=== PATIENT | male | born 1950 | race Caucasian/White ===

== ENCOUNTER 2022-11-07 09:40 | Emergency (ER) | payer MEDICARE, OTHER, SELFPAY ==
[2022-11-07 09:58] VITALS: BP 139/66; PULSE 61; RESP 18; TEMP 36.6; O2SAT 98
[2022-11-07 09:59] VITALS: BP 139/66; PULSE 61; RESP 18; TEMP 36.6; O2SAT 98
--- NOTE | 2022-11-07 10:03 | ED.URI ---
HPI - URI/Sore Throat General Chief Complaint: Upper Respiratory Infection Stated Complaint: Congestion,Cough Time Seen by Provider: 11/07/22 10:03 Source: patient, RN notes reviewed and old records reviewed Mode of arrival: ambulatory Limitations: no limitations History of Present Illness HPI Narrative: 71-year-old male presents to the [facility] with complaints cough and congestion since Thursday night. Has taken [id number] cough and cold medication one time with no relief Denies fevers. Complains of generalized body aches that have been going on on for 4 days. Onset (ago): day(s) (4) Related Data Home Medications Medication Instructions Recorded Confirmed allopurinol 300 mg tablet 300 mg PO DAILY 11/07/22 11/07/22 aspirin 81 mg tablet,delayed 81 mg PO DAILY 11/07/22 11/07/22 release diclofenac sodium 75 mg 75 mg PO DAILY 11/07/22 11/07/22 tablet,delayed release diltiazem HCl 120 mg capsule,24 120 mg PO DAILY 11/07/22 11/07/22 hr,extended release (Tiazac) methocarbamol 500 mg tablet 500 mg PO PRN PRN Muscle Pain 11/07/22 11/07/22 metoprolol succinate 100 mg 100 mg PO DAILY 11/07/22 11/07/22 tablet,extended release 24 hr potassium chloride 20 mEq 20 meq PO DAILY 11/07/22 11/07/22 tablet,extended release(part/cryst) pravastatin 40 mg tablet 40 mg PO DAILY 11/07/22 11/07/22 telmisartan 80 1 tablet PO DAILY 11/07/22 11/07/22 mg-hydrochlorothiazide 25 mg tablet (Micardis HCT) Allergies Allergy/AdvReac Type Severity Reaction Status Date / Time No Known Allergies Allergy Verified 11/07/22 09:56 Review of Systems Review of Systems: All systems reviewed & are unremarkable except as noted in HPI and below Constitutional: Constitutional: Reports as per HPI, Reports body ache(s) and Reports headache(s) Eyes: Eyes: Reports no additional eye complaints ENT: Reports system reviewed and no additional complaints, except as documented Cardiovascular: Cardiovascular: Reports no additional cardiovascular complaints, Denies chest pain and Denies dyspnea Respiratory: Respiratory: Reports as per HPI, Denies chest congestion, Reports cough and Denies dyspnea Gastrointestinal: Gastrointestinal: Reports no additional gastrointestinal complaints, Denies abdominal pain, Denies nausea and Denies vomiting Musculoskeletal: Musculoskeletal: Reports no additional musculoskeletal complaints Integumentary/Breasts: Skin/Breast: Reports system reviewed and no additional complaints, except as docu Neurologic: Reports system reviewed and no additional complaints, except as documented Psychiatric: Psychiatric: Reports no additional psychiatric complaints Allergic/Immunologic: Allergic/Immunologic: Reports no additional allergic/immunologic complaints [facility] Past Medical History Medical History (Updated 11/07/22 @ 15:51 by Alessia De Leon, JEREMÍAS) Arthritis High cholesterol History of high blood pressure Comments At the time of my signature, I reviewed and agree with the nursing past medical, surgical, social, and family history. There is no relevant family history pertinent to the patient complaint. Exam Const: General: cooperative, no acute distress, well developed, alert, ill appearing acutely (Mild), tired appearing, uncomfortable, well groomed and well nourished Nutritional Appearance: well nourished Orientation/consciousness: patient oriented x3 Limitations: no limitations HENMT: Head: normal to inspection Ears: hearing grossly normal bilaterally, external ears normal, TM's normal bilaterally and EAC's normal Face/Nose/Sinus: Normal external nose present, Normal nares present, Normal nasal mucous membranes and turbinates present and normal facial exam Face and sinus: normal facial exam Mouth: Yes Normal oral and palatal mucosa present, Yes lip normal and Yes moist mucous membranes Throat: posterior oropharynx normal, uvula midline and postnasal drainage Eyes: General: appearance normal, both eyes and all
== END 2022-11-07 10:38 | disposition home or self-care (01) ==
PROVIDERS: Emergency Provider Nurse Practitioner
DX: U07.1 COVID-19 (principal); M19.90 Unspecified osteoarthritis, unspecified site; E78.00 Pure hypercholesterolemia, unspecified; I10 Essential (primary) hypertension; Z79.82 Long term (current) use of aspirin
CPT/HCPCS: 87081; 87426; 87804; 87880; 99213; C9803; G0463

== ENCOUNTER 2024-03-25 16:43 | Emergency (ER) | payer MEDICARE, OTHER, SELFPAY ==
[2024-03-25 16:58] VITALS: BP 175/70; PULSE 66; RESP 18; TEMP 37.2; O2SAT 98
--- NOTE | 2024-03-25 17:31 | ED.URI ---
HPI - URI/Sore Throat General Chief Complaint: Upper Respiratory Infection Stated Complaint: Flu like Symptoms Time Seen by Provider: 03/25/24 17:31 Source: patient, RN notes reviewed and old records reviewed Mode of arrival: ambulatory Limitations: no limitations History of Present Illness HPI Narrative: 74-year-old male presents to the [facility] with flu-like symptoms. Patient reports 2 days of cough, sore throat, right ear fullness and chills. Has not taken anything for his symptoms Related Data Home Medications ?Medication ?Instructions ?Recorded ?Confirmed ?Last Taken ?Type allopurinol 300 mg tablet 300 mg PO DAILY 11/07/22 11/07/22 Unknown History aspirin 81 mg tablet,delayed 81 mg PO DAILY 11/07/22 11/07/22 Unknown History release diclofenac sodium 75 mg 75 mg PO DAILY 11/07/22 11/07/22 Unknown History tablet,delayed release diltiazem HCl 120 mg capsule,24 120 mg PO DAILY 11/07/22 11/07/22 Unknown History hr,extended release (Tiazac) methocarbamol 500 mg tablet 500 mg PO PRN PRN Muscle Pain 11/07/22 11/07/22 Unknown History metoprolol succinate 100 mg 100 mg PO DAILY 11/07/22 11/07/22 Unknown History tablet,extended release 24 hr potassium chloride 20 mEq 20 meq PO DAILY 11/07/22 11/07/22 Unknown History tablet,extended release(part/cryst) pravastatin 40 mg tablet 40 mg PO DAILY 11/07/22 11/07/22 Unknown History telmisartan 80 1 tablet PO DAILY 11/07/22 11/07/22 Unknown History mg-hydrochlorothiazide 25 mg tablet (Micardis HCT) Allergies Allergy/AdvReac Type Severity Reaction Status Date / Time No Known Allergies Allergy Verified 03/25/24 17:40 Review of Systems Review of Systems: All systems reviewed & are unremarkable except as noted in HPI and below Constitutional: Constitutional: Reports as per HPI, Reports body ache(s) and Reports chills ENT: Reports as per HPI and Reports sore throat Cardiovascular: Cardiovascular: Reports no additional cardiovascular complaints, Denies chest pain and Denies dyspnea Respiratory: Respiratory: Reports as per HPI, Denies chest congestion, Reports cough and Denies dyspnea Musculoskeletal: Musculoskeletal: Reports no additional musculoskeletal complaints Integumentary/Breasts: Skin/Breast: Reports system reviewed and no additional complaints, except as docu [facility] Past Medical History Medical History Arthritis High cholesterol History of high blood pressure Comments At the time of my signature, I reviewed and agree with the nursing past medical, surgical, social, and family history. There is no relevant family history pertinent to the patient complaint. Exam Const: General: cooperative, healthy appearing, comfortable, no acute distress, well developed, alert and well nourished Nutritional Appearance: well nourished Orientation/consciousness: patient oriented x3 Limitations: no limitations HENMT: Head: normal to inspection Ears: hearing grossly normal bilaterally, external ears normal and TM abnormal bulging on the right and with fluid behind the TM on the right Face/Nose/Sinus: normal facial exam and face symmetric Face and sinus: normal facial exam and face symmetric Mouth: Yes Normal oral and palatal mucosa present, Yes lip normal, Yes tongue normal and Yes moist mucous membranes Throat: posterior oropharynx normal, uvula midline, postnasal drainage and no uvular edema Eyes: General: appearance normal, both eyes and all related structures Neck: Neck: normal visual inspection, full ROM, no lymphadenopathy and no meningeal signs Chest: Chest palpation & inspection: normal inspection of the chest Resp: Effort & Inspection: normal respiratory effort and able to speak in complete sentences Auscultation: clear to auscultation bilaterally, no crackles, no rales, no rhonchi and no wheezes Cardio: Rate: regular rate Skin: General skin exam: normal color and no rashes or lesions noted Neuro: General: patient oriented x3, gait normal, moves all extremities and no meningeal signs Cognition (Neuro): normal cognition Speech: normal speech Gait exam (Neuro): Normal gait present Extrem: General: normal to inspection, full ROM, capillary refill normal and normal gait Psych: Appearance: grossly normal and well kempt Mental Status: mental status grossly normal Speech and movement: Normal speech and movement present and Clear speech present Affect: normal affect Attitude: cooperative Course Course Level of Care: Express Care Visit Vital Signs Vital signs: Vital Signs Temperature 99.0 F 03/25/24 16:58 Pulse Rate 66 03/25/24 16:58 Respiratory Rate 18 03/25/24 16:58 Blood Pressure 175/70 H 03/25/24 16:58 Pulse Oximetry 98 03/25/24 16:58 Oxygen Delivery Room Air 03/25/24 16:58 Temperature 99.0 F 03/25/24 16:58 Pulse Rate 66 03/25/24 16:58 Respiratory Rate 18 03/25/24 16:58 Blood Pressure 175/70 H 03/25/24 16:58 Pulse Oximetry 98 03/25/24 16:58 Oxygen Delivery Room Air 03/25/24 16:58 Reviewed MDM - URI/Sore Throat MDM Narrative Medical decision making narrative: Patient sitting comfortably in exam. Nontoxic vitals are stable except blood pressure mildly elevated. Patient does take blood pressure medication Patient's flu, COVID, strep are negative. Exam most consistent with viral URI with postnasal drainage. Patient appropriate for outpatient treatment and follow-up Discharge instructions reviewed with patient, as well as provided in writing per nursing staff. The instructions also include specific and strict return/GO TO THE ER as well as f/u information. All questions have been answered, and the patient deny any further questions with discharge and discharge plan. Some parts of this dictation were generated by voice recognition software and may contain typographical and/or grammatical inaccuracies. Differential Diagnosis Differential diagnosis: Likely upper respiratory infection, otitis media, sinusitis, viral infection, bronchitis, influenza and pharyngitis Lab Data Labs: Lab Results 03/25/24 Range/Units 17:56 POC Influenza A Ag Negative (Negative) POC Influenza B Ag Negative (Negative) POC SARS CoV-2 Ag Negative (Negative) POC Grp A Strep Screen Negative (Negative) Reviewed Critical Care Time Critical Care Time Critical Care Time: No Discharge Plan Discharge Clinical Impression: Post-nasal drainage Upper respiratory infection Qualifiers: URI type: unspecified viral URI Qualified Code(s): J06.9 - Acute upper respiratory infection, unspecified Patient Disposition: Home, Self-Care Condition: Stable Instructions: Antibiotic Form, Upper Respiratory Infection (ED), Postnasal Drip (DC) Additional Instructions: Today your blood pressure was 175/70. Is recommended you follow-up with primary care provider within 2 weeks to have this rechecked peer Your rapid strep swab was negative today at [facility]. A throat culture will be sent to the laboratory for further testing. If the test is positive, you will receive a phone call within 48 hours and an appropriate antibiotic will be initiated at that time. Your rapid COVID test were negative Your rapid flu test was negative Your symptoms are likely due to a viral illness, which is not treated with antibiotics. Typically viral infections last 7-10 days, can linger for couple of weeks. It is very important to treat your symptoms. Drink plenty of water, Gatorade, Pedialyte, ice pops or Jell-O. -Alternate Tylenol and Motrin per package directions for fever or pain. You can alternate every 4 hours -Antihistamine medication such as Zyrtec/Claritin/Ana during the day can help improve symptoms. -doing daily nasal irrigations can help relieve pressure your sinuses. Things like a Neti pot -Use Flonase twice a day for 5 days then daily to help reduce the inflammation and dry up your sinuses. -You can also use Coricidin HBP or Mucinex. Be sure to drink plenty of water with this medication at least 8 ounces with every dose and it is important to drink 8 to 10 glasses of water per day. Water is a natural decongestant -Eat and drink things that are easy to swallow, like tea or soup, or popsicles. -Oral rinses such as: Salt water gargles and/or may use topical anesthetic (eg. Chloraseptic spray) or lozenges to relieve dryness or throat pain). -Frequent hand washing or hand esthetician facialist is one of the best ways to prevent spread of infection. -Using a vaporizer or humidifier at night will also help thin secretions and help with coughing up phlegm. -Follow up with primary care provider in 7-10 days if condition is not improving - For new or worsening symptoms go directly to the nearest ER Patient Language: Georgian Prescriptions: No Action methocarbamol 500 mg tablet 500 mg PO PRN PRN (Reason: Muscle Pain) pravastatin 40 mg tablet 40 mg PO DAILY metoprolol succinate 100 mg tablet extended release 24 hr 100 mg PO DAILY aspirin 81 mg tablet,delayed release (DR/EC) 81 mg PO DAILY potassium chloride 20 mEq tablet,ER particles/crystals 20 meq PO DAILY diltiazem HCl [Tiazac] 120 mg capsule,extended release 24 hr 120 mg PO DAILY diclofenac sodium 75 mg tablet,delayed release (DR/EC) 75 mg PO DAILY allopurinol 300 mg tablet 300 mg PO DAILY telmisartan-hydrochlorothiazid [Micardis HCT] 80-25 mg tablet 1 tablet PO DAILY Follow-up/Referrals: [facility] [Primary Care Provider] - 2 Weeks ([facility] care follow up ) Time of Disposition: 17:50
[2024-03-25 17:58] LABS: EDCOVIDSCREEN Negative (Negative); EDINFLUASCREEN Negative (Negative); EDINFLUBSCREEN Negative (Negative); EDSTREPNEGPOS1 Negative (Negative)
== END 2024-03-25 17:55 | disposition home or self-care (01) ==
PROVIDERS: Emergency Provider Nurse Practitioner
DX: R09.82 Postnasal drip (principal); J06.9 Acute upper respiratory infection, unspecified; Z20.822 Contact with and (suspected) exposure to COVID-19; I10 Essential (primary) hypertension; E78.00 Pure hypercholesterolemia, unspecified; M19.90 Unspecified osteoarthritis, unspecified site; Z79.82 Long term (current) use of aspirin
CPT/HCPCS: 87081; 87426; 87804; 87880; 99213; G0463

== ENCOUNTER 2024-08-15 19:08 | Emergency (ER) | payer MEDICARE, OTHER, SELFPAY ==
--- OUTSIDE RECORDS SUMMARY | 2024-08-15 19:11 | XMS_ITS | Encounter Summary ---
Author Name [place] Address [address] [place] [address] Care Team Providers Care Marketing Graphics Specialist Name Role Phone CHRYSTAL FLOYD Primary Care Provider Unavailabl e Insurance Providers: All historical and current Section Date Range: From patient's date of to the date document was created. This section includes the names of all active insurance providers for the patient. Insurance Provider Type of Coverage Plan Name Start of Policy Coverage End of Policy Coverage Group Number Member ID Insurance Provider's Telephone Number Policy German's Name Patient's Relationship to Policy German AETNA PREFERRED PROVIDER ORGANIZAT ION (PPO) [facility] Oct 03, 2015 [id number] [phone] [facility] PATIENT AETNA POINT OF SERVICE [facility] A (I) Mar 30, 2013 [id number] [facility] PATIENT AETNA PHARMACY MANAGEMENT PRESCRIPT ION RX PLAN Mar 30, 2013 [id number] [facility] PATIENT AETNA [facility] Oct 03, 2015 [id number] [phone] [facility] [place] [id number] PRESCRIPT ION [id number] July 28, 2006 [id number] SERENE BRUNSON [place] PATIENT MEDICARE (WNR) MEDICARE (M) PART A Dec 28, 2014 PART A [id number] [phone] SERENE BRUNSON [place] PATIENT MEDICARE (WNR) MEDICARE (M) PART B Dec 28, 2014 PART B [id number] SERENE BRUNSON [place] PATIENT MEDICARE (WNR) MEDICARE (M) PART A Dec 28, 2014 PART A [id number] SERENE BRUNSON [facility] PATIENT MEDICARE (WNR) MEDICARE (M) PART B Dec 28, 2014 PART B [id number] [phone] SERENE BRUNSON [place] PATIENT [facility] [id number] [phone] SERENE BRUNSON [facility] PATIENT Selected Encounter This section includes the information on record at [place] for the Encounter. Date/Time Encounter Type Encounter Description Reason Provider Source Jun 03, 2024 10:45 AM HEARING AID FITTING/CHECKIN G AUDIOLOGY ICD-10-CM H90.3 Sensorineural hearing loss, bilateral EMI OSCAR [facility] Encounter Template Text not used by [place] Assessments - Encounter Diagnoses This section includes the primary and secondary diagnoses documented for the Encounter. Date/Time Primary/Secondary Diagnosis Diagnosis Name Provider Source Jun 12, 2024 03:28 PM PRIMARY Sensorineural hearing loss, bilateral EMI OSCAR [facility] Plan of Treatment: Future Appointments (+ 6 months) and Future Tests (+/- 45 days) The Plan of Treatment section includes future care activities for the patient from all [place] treatmentfacilities. This section includes future appointments and future orders which are active, pending or scheduled. Future Appointments This section includes appointments that were scheduled to occur 6 months from the date of the Encounter, up to a maximum of 20 appointments. The data comes from all [place] treatment facilities. Appointment Date/Time Appointment Type Appointme nt Facility Name Jun 16, 2024 04:00 PM AMBULATORY - MEDICINE [facility] August 23, 2024 04:00 PM AMBULATORY - MEDICINE [facility] Oct 24, 2024 10:30 AM AMBULATORY - MEDICINE [facility] Active, Pending, and Scheduled Orders This section includes a listing of several types of active, pending, and scheduled orders, including clinic medications orders, diagnostic test orders, procedure orders and consult orders; where the start date of the order is 45 days before the date of the Encounter or 45 days after the date of theEncounter. The data comes from all [place] treatment facilities. Test Date/Time Test Type Test Details Facility Name Apr 28, 2024 12:00 AM Laboratory - Chemi stry Order PROST. SPECIFIC AG.(PB-STL) GOLD/RED SST SERUM SP [facility] Apr 28, 2024 12:00 AM Laboratory - Chemi stry Order BASIC METABOLIC PANEL GREEN LI/HEP BLD/PLAS PLASMA SP [facility] Apr 28, 2024 12:00 AM Laboratory - Chemi stry Order URINALYSIS (STL-PB) URINE [facility] Apr 28, 2024 12:00 AM Laboratory - Chemi stry Order CBC BLOOD SP [facility] Apr 28, 2024 12:00 AM Laboratory - Chemi stry Order HGA1C BLOOD [facility] Lab Results: +/- 30 days of the encounter This section includes the Chemistry and Hematology Lab Results on record with [place] for the patient. Radiology Reports and Pathology Reports are provided separately, in subsequent sections. Lab Results This section contains the Chemistry/Hematology Results that were resulted 30 days before or 30 daysafter the date of the Encounter. Date/Time Source Result Type Result - Unit Interpretation Reference Range Specimen Type Comment May 12, 2024 03:17 PM [facility] I-STAT, CREAT (L-TN) BLOOD Specimen Type: BLOOD Comment: Test Performed by: [id number] Meter #: [id number] Ordering Provider: CHRYSTAL FLOYD Report Released Date/Time: May 12, 2024 03:19 PM Reporting Lab: [facility] [address] [place] [id number] Performing Lab: [facility] [address] [place] [id number] I-STAT, CREAT (L-MA) 1.1 mg/dL 0.7-1.3 Social History: Smoking Status (Most current) and Tobacco Use (All prior to encounter date) This section includes the most current, and the historical, smoking and tobacco- related health factors from the [place] facility where the Encounter took place. Current Smoking Status This section includes the most current smoking, or tobacco-related health factor, from the [place] facility where the Encounter took place. Date/Time Current Smoking Status Comment Irish roldandanica Dec 21, 2023 10:04 AM [place]-TOBACCO NEVER USED [facility] Tobacco Use History This section includes a history of the smoking, or tobacco-related health factors, that were collected on or before the date of the Encounter. The data comes from the [place] facility where the Encounter took place. Date/Time Smoking Status/Tobacco Use Comment Carlos amie Jul 22, 2022 09:58 AM [place]-TOBACCO NEVER USED [facility] Apr 19, 2020 03:00 PM [place]-TOBACCO NEVER USED [facility] Radiology Reports: +/- 30 days of the encounter Radiology Reports For cases when an order for radiology services may have been completed prior to the date of the Encounter, the report list includes the Radiology Reports that were completed up to 30 days before dateof the Encounter. For cases when an order for radiology services may have been completed after the date of the Encounter, the report list also includes the Radiology Reports that were completed up to30 days after date of the Encounter. The data comes from all [place] treatment facilities. Date/Time Radiology Report Provider Source May 12, 2024 03:[address] UROGRAM-P: MARIA EUGENIA BRUNSON [place] [id number] -1950 M Ex Date: MAY 12, 2024@15:05 Req Phys: CHRYSTAL FLOYD Loc: [facility]-ST CLR PACT 2 PCP (Michele'ko Lo Img Loc: [facility]-CT IMAGING Service: [address] [address] (Case [id number] COMPLETE) CT ABDOMEN AND PELVIS WITH AND WI(CT Detailed) CPT:47352 Contrast Media : Non-ionic Iodinated Reason for Study: mass on l/s MRI spin Clinical History: Responsible Attending: Chrystal Floyd MD Attending Contact Number: [phone] Resident Contact Number: Mass noted on MRI of lumbar spine in the inferior wall of bladder Allergies listed in CPRS chart: Patient has answered NKA Creatinine: CREATININE 1.06 mg/dL 12/28/2023 09:36 /eGFR: STL EGFR (within one year). CREATININE 1.06 mg/dL (12/28/23 09:36) Wt: 225.2 lb [102.15 kg] (04/28/2024 14:03) History of: Renal failure, chronic or acute renal disease: NO Report Status: Verified Date Reported: MAY 15, 2024 Date Verified: MAY 15, 2024 Retail Supervisor E-Sig:/ES/Maria Eugenia Fernando MD Report: CASE #: [id number] DATE:05/12/2024 5:17 PM CLINICAL HISTORY:mass on l/s MRI spin COMPARISON: None currently available. PROCEDURES: CT ABDOMEN AND PELVIS WITH AND WITHOUT CONTRAST FINDINGS: No urinary calculi. No obstructive uropathy. Simple appearing cyst exophytic from the upper pole right kidney. Smaller cyst right inferior cortex. No obstructive uropathy. No acute perinephric inflammation. Normal course and caliber of the ureters to the bladder base. Portions of the distal left ureter are unopacified, presumably related to peristalsis. Prostate is enlarged measuring 6.8 cm craniocaudal by 5.9 cm transverse and 7.1 cm AP. Prostate gland creates mass effect bladder base. Is difficult to separate the prostate gland from the bladder base. The possibility of a bladder base tumor cannot be entirely excluded, although the appearance could be related to mass effect from the enlarged prostate gland. Cystoscopy recommended for further evaluation. Top normal heart size. No pleural or pericardial effusion. Pancreas, spleen and adrenals unremarkable. No cholelithiasis or acute cholecystitis. Tiny hepatic hypodensities too small to fully characterize along with some larger hypodensities consistent with cysts are noted. No definite hepatic mass. No intra or extrahepatic biliary dilatation. No retroperitoneal or mesenteric lymphadenopathy. Normal appendix. Colonic diverticulosis but no acute diverticulitis or bowel obstruction or perforation. Periumbilical hernia containing only fat. No inguinal hernia. No free or loculated fluid abdomen or pelvis. No retroperitoneal or mesenteric lymphadenopathy. Degenerative changes spine and hips. No fractures identified. Impression: Enlarged prostate gland measuring 6.8 x 5.9 x 7.1 cm creates mass effect on the bladder base. Bladder base is irregular and difficult to separate from the enlarged prostate gland. Possibility of a bladder base tumor cannot be excluded. However, the appearance could merely be the result of mass effect from the enlarged prostate gland. Cystoscopy recommended for further evaluation. Right renal cysts. Hepatic cysts. Periumbilical hernia. Colonic diverticulosis but no acute diverticulitis. No free or loculated fluid abdomen or pelvis. No renal masses. Primary Interpreting Staff: Maria Eugenia Fernando MD, Radiologist (Retail Supervisor) /MARIA EUGENIA KIMBLE [facility] Encounter Notes: All associated encounter notes This section contains the clinical notes associated to the Encounter. Date/Time Encounter Note(s) Provider Source Jun 03, 2024 11:12 AM AUDIOLOGY CONSULT: LOCAL TITLE: ABR CONSULT [facility] STANDARD TITLE: AUDIOLOGY CONSULT DATE OF NOTE: JUN 03, 2024@11:12 ENTRY DATE: JUN 03, 2024@11:12:50 AUTHOR: EMI OSCAR COSIGNER: URGENCY: STATUS: COMPLETED SUBJECT: audio [facility] AUDITORY EVOKED POTENTIAL EVALUATION SUMMARY PROTOCOL Type: Click Electrode array: Forehead to earlobes Intensity: 90 dB Filter settings: 100-3000 Hz Rate: 21.1/sec Transducer: Inserts Duration: 100 usec Masking: white noise, 55 dB nHL Polarity: Rarefaction Epoch time: 10.66 ms HISTORY Mr. Brunson was seen today for an auditory brainstem response evaluation upon referral from -Audiology. The patient was seen for an audiogram on 04-22-2024. Thresholds indicated a normal to severe sensorineural hearing loss in the right ear and a mild to severe sensorineural hearing loss in the left ear . Word recognition scores were rated as 88% in the right ear and 68% in the left ear. The patient was referred asymmetric puretones and word recognition scores to the left ear. RESULTS 90 dB I III V I-III III-V I-V RIGHT 1.91 3.91 5.90 2.00 2.00 4.00 LEFT 1.62 3.91 5.82 2.29 1.92 4.21 INTERPRETATION All absolute and interpeak wave latencies were within normal limits bilaterally. Wave V interaural difference was within normal limits. Wave morphology was good. Test results do not suggest retrocochlear pathology. Per previous [facility] notes, Verifit recommended at today's evaluation. Pt has the following VA aids [facility] c-shells: 12/22/18 SONOVA PHONAK AUDEO M90-312 AYDEE R [id number] 12/22/18 SONOVA PHONAK AUDEO M90-312 AYDEE L [id number] Real-ear measures are within acceptable limits. Curves stored in BART. Pt would like aids paired to his phone and an meryl for his hearing aids like his 's aids. Installed Health Benefits Direct meryl on phone. Paired aids to phone and meryl and demonstrated BT streaming, phone calls, and meryl adjustments. Pt happy with hearing aids and will call with problems. RECOMMENDATIONS 1. Patient has been advised of normal test results. 2. HAC as needed. /kathy/ Pradeep HINES Staff Marketing Research Analyst, Surgery Service Signed: 06/03/2024 11:56 EMI OSCAR [facility]
--- OUTSIDE RECORDS SUMMARY | 2024-08-15 19:11 | XMS_ITS | Encounter Summary ---
Author Name [facility] [place] Address [address] [place] [address] Care Team Providers Care Shop Technician Name Role Phone CHRYSTAL FLOYD Primary Care [...] German AETNA PREFERRED PROVIDER ORGANIZAT ION (PPO) [facility] Oct 03, 2015 [id number] [facility] AETNA POINT OF SERVICE [facility] A (I) Mar 30, 2013 [id number] [facility] AETNA PHARMACY MANAGEMENT PRESCRIPT ION RX PLAN Mar 30, 2013 [id number] [facility] AETNA [facility] Oct 03, 2015 [id number] [facility] [place] [place] [id number] PRESCRIPT ION [id number] July 28, 2006 [id number] SERENE BRUNSON OMAS PATIENT MEDICARE (WNR) MEDICARE (M) PART A Dec 28, 2014 PART A [id number] SERENE BRUNSON OMAS PATIENT MEDICARE (WNR) MEDICARE (M) PART B Dec 28, 2014 PART B [id number] SERENE BRUNSON OMAS PATIENT MEDICARE (WNR) MEDICARE (M) PART A Dec 28, 2014 PART A [id number] SERENE BRUNSON OMAS PATIENT MEDICARE (WNR) MEDICARE (M) PART B Dec 28, 2014 PART B [id number] SERENE BRUNSON OMAS PATIENT [facility] [id number] [phone] SERENE BRUNSON OMAS PATIENT Selected Encounter This section includes the information on record at [place] for the Encounter. Date/Time Encounter Type Encounter Description Reason Provider Source Apr 22, 2024 01:00 PM HEARING AID FITTING/CHECKIN G AUDIOLOGY ICD-10-CM H90.3 Sensorineural hearing loss, bilateral SHARAN LANCASTER Janet Encounter Template Text not used by [place] Assessments - Encounter Diagnoses This section includes the primary and secondary diagnoses documented for the Encounter. Date/Time Primary/Secondary Diagnosis Diagnosis Name Provider Source Apr 22, 2024 02:01 PM PRIMARY Sensorineural hearing loss, bilateral SHARAN LANCASTER [facility] Apr 22, 2024 02:01 PM SECONDARY Tinnitus, bilateral SHARAN LANCASTER [facility] Plan of Treatment: Future Appointments (+ 6 months) and Future Tests (+/- 45 days) The Plan of Treatment section includes future care activities for the patient from all [place] treatmentfacilities. This section includes future appointments and future orders which are active, pending or scheduled. Future Appointments This section includes appointments that were scheduled to occur 6 months from the date of the Encounter, up to a maximum of 20 appointments. The data comes from all [place] treatment facilities. Appointment Date/Time Appointment Type Appointme nt Facility Name Apr 28, 2024 02:00 PM AMBULATORY - MEDICINE [facility] May 12, 2024 03:30 PM AMBULATORY - NONE [facility] NABILA Zhou [facility] Jun 03, 2024 10:45 AM AMBULATORY - NONE [facility] NABILA Winnie [facility] Jun 16, 2024 04:00 PM AMBULATORY - MEDICINE [facility] August 23, 2024 04:00 PM AMBULATORY MEDICINE [facility] Active, Pending, and Scheduled Orders This section includes a listing of several types of active, pending, and scheduled orders, including clinic medications orders, diagnostic test orders, procedure orders and consult orders; where the start date of the order is 45 days before the date of the Encounter or 45 days after the date of theEncounter. The data comes from all [facility] facilities. Test Date/Time Test Type Test Details Facility Name Apr 28, 2024 12:00 AM Laboratory - Chemi stry Order PROST. SPECIFIC AG.(PB-STL) GOLD/RED SST SERUM [facility] Apr 28, 2024 12:00 AM Laboratory - Chemi stry Order BASIC METABOLIC PANEL GREEN LI/HEP BLD/PLAS PLASMA SP [facility] Apr 28, 2024 12:00 AM Laboratory - Chemi stry Order URINALYSIS (STL-PB) URINE SP [facility] Apr 28, 2024 12:00 AM Laboratory - Chemi stry Order CBC BLOOD [facility] Apr 28, 2024 12:00 AM Laboratory - Chemi stry Order HGA1C BLOOD [facility] Lab Results: +/- 30 days of the encounter This section includes the Chemistry and Hematology Lab Results on record with [place] for the patient. Radiology Reports and Pathology Reports are provided separately, in subsequent sections. Lab Results This section contains the Chemistry/Hematology Results that were resulted 30 days before or 30 daysafter the date of the Encounter. Date/Time Source Result Type Result - Unit Interpretation Reference Range Specimen Type Comment May 12, 2024 03:17 PM [facility] I-STAT, CREAT (STL-MA) BLOOD Specimen Type: BLOOD Comment: Test Performed by: [id number] Meter #: [id number] Ordering Provider: CHRYSTAL FLOYD Report Released Date/Time: May 12, 2024 03:19 PM Reporting Lab: [facility] [address] [facility] [id number] Performing Lab: [facility] [address] [facility] [id number] I-STAT, CREAT (STL-MA) 1.1 mg/dL 0.7-1.3 Social History: Smoking Status (Most current) and Tobacco Use (All prior to encounter date) This section includes the most current, and the historical, smoking and tobacco- related health factors from the [place] facility where the Encounter took place. Current Smoking Status This section includes the most current smoking, or tobacco-related health factor, from the [place] facility where the Encounter took place. Date/Time Current Smoking Status Comment Irish skinner Dec 21, 2023 10:04 AM [place]-TOBACCO NEVER USED [facility] Tobacco Use History This section includes a history of the smoking, or tobacco-related health factors, that were collected on or before the date of the Encounter. The data comes from the [place] facility where the Encounter took place. Date/Time Smoking Status/Tobacco Use Comment F acility Jul 22, 2022 09:58 AM [place]-TOBACCO NEVER USED [facility] Apr 19, 2020 03:00 PM [place]-TOBACCO NEVER USED [facility] Radiology Reports: +/- 30 days of [...] the Encounter. The data comes from all [place] treatment facilities. Date/Time Radiology Report Provider Source May 12, 2024 03:[address] UROGRAM-P: MARIA EUGENIA BRUNSON [id number] -1950 M Ex Date: MAY 12, 2024@15:05 Req Phys: CHRYSTAL FLOYD Loc: [facility]-ST CLR PACT 2 PCP (Michele'ko Oneil Img Loc: [facility]-CT IMAGING [facility] Service: [facility], [facility] [address] [place] [address] (Case [id number] COMPLETE) CT ABDOMEN AND PELVIS WITH AND WI(CT Detailed) CPT:73083 Contrast Media : Non-ionic Iodinated Reason for Study: mass on l/s MRI spin Clinical History: Responsible Attending: Chrystal Floyd MD Attending Contact Number: [phone] Resident Contact Number: Mass noted on MRI [...] 15, 2024 Date Verified: MAY 15, 2024 Engine Cleaner E-Sig:/ES/Maria Eugenia Fernando MD Report: CASE #: [id number] DATE:05/12/2024 5:17 PM CLINICAL HISTORY:mass on l/s [...] Interpreting Staff: Maria Eugenia Fernando MD, Radiologist (Engine Cleaner) /MARIA EUGENIA KIMBLE [facility] Encounter Notes: All associated encounter notes This section contains the clinical notes associated to the Encounter. Date/Time Encounter Note(s) Provider Source Apr 22, 2024 01:22 PM AUDIOLOGY E & M NO TE: LOCAL TITLE: AUDIO EVALS ST STANDARD TITLE: AUDIOLOGY E & M NOTE DATE OF NOTE: APR 22, 2024@13:22 ENTRY DATE: APR 22, 2024@13:22:44 AUTHOR: SHARAN LANCASTER COSIGNER: URGENCY: STATUS: COMPLETED PURPOSE OF APPOINTMENT: Audiometric Evaluation [x] patient-initiated visit CASE HISTORY: Established pt with a history of bilateral high-frequency sensorineural hearing loss. Last audio eval was 11/25/2018. [facility] hearing aids: 12/22/18 SONOVA PHONAK AUDEO M90-312 AYDEE R [id number] 12/22/18 SONOVA PHONAK AUDEO M90-312 AYDEE L [id number] Pt's chief complaint is a perception of bothersome sensation in his left ear when touched; onset June-July 2023 per his report. He describes it as a tight kettle drum , higher pitch, with some echo. ENT evaluated and recommend ETD treatment regimen pt states has been unsuccessful. He reports his hearing has changed to the left though states his right ear has remained stable, though he misses sounds. He states his hearing aids do well though he states he feels they need adjustments. He endorses bilateral, constant, tinnitus he has largely habituated to. Pt denies otalgia, aural fullness, dizziness, otosurgery, recent ear infections, ototoxic history, radiation to head/neck, and/or family history of congenital hearing loss. OTOSCOPY: Clear canals and unremarkable TMs bilaterally. RESULTS: Right Ear- Audiometry (air and bone conduction): WNL through 500 Hz sloping to moderate SNHL 2-4 kHz and severe at 8 kHz. SRT: 25 dB HL (last eval 20 dB HL) WRS: 88% 50-word*, good (last eval 92%) Tympanogram: Jerger Type A, WNL Reflexes: Ipsi: Present 500-1000 Hz, absent 2-4 kHz. Contra: Present 500-2000 Hz, absent 4 kHz. Left Ear- Audiometry (air and bone conduction): Moderate SNHL 250 Hz rising to mild 1-2 kHz then sloping to severe at 8 kHz. SRT: 35 dB HL (last eval 25 dB HL) WRS: 68% 50-word*, fair (last eval 92%) Tympanogram: Jerger Type A, WNL Reflexes: Ipsi: Present 500-2000 Hz, absent 4 kHz. Contra: Present 500-1000 Hz, absent 2-4 kHz. Asymmetric sensorineural hearing loss worse to the left ear. Significant change and widening of asymmetry since last eval; no indication of middle ear dysfunction at this time. ABR indicated at this time. Counseled pt regarding test results and ABR. Pt agreeable to further testing to rule out retrocochlear pathology. Hearing aid check performed today: CLEANING/REPAIRS: General cleaning. Listening check OK. DATALOGGING: Datalogging since 04/29/2019 reveals 0.2 hrs/day avg wear time. Datalogging reset. PROGRAMMING: Feedback test is good bilaterally. Programming updated to NAL-NL2 targets. Created manual tinnitus program for pt per his request and activate program change (long press of upper button.) Pt demonstrated proficiency with changing programs. DISPOSITION: Pt left office wearing binaural hearing aids. RECOMMENDATIONS: 1. ABR. Recommend Verifit at that time as well. 2. Contact Audiology Clinic [phone] for repairs and/or adjustments as needed. *50-word NU-6A lists used per raw material handler's professional discretion. Rationale: 50-word NU-6A lists are phonetically-balanced and provider greater validity and reliability in assessment without significant time or effort demands for patient and/or raw material handler. See Kaela & Purnima (1978,) Marc & Monet (2003,) and Abdelrahman & Wallace (2011.) /kathy/ Pradeep Galarza, [facility] Staff Student Records Coordinator, Surgery Service Signed: 04/22/2024 15:46 SHARAN LANCASTER [facility]
--- OUTSIDE RECORDS SUMMARY | 2024-08-15 19:11 | XMS_ITS | Clinical Summary ---
Author Organization [facility] Address [address] [place] [address] Care Team Providers Care Manager Fast Food Name Role Phone Chrystal Clark MD Primary Care Provider [phone] Allergies No known active allergies Medications allopurinol 300 MG tablet Take 300 mg by mouth nightly. 8 Active ASPIRIN 81 MG tablet Take 81 mg by mouth nightly. 8 Active omega-3 acid 1 GM capsule Take 1 g by mouth 2 (two) times daily. 8 Active Telmisartan-HC TZ 80-25 MG Tab Take 1 tablet by mouth daily. 8 Active meloxicam 15 MG tablet Take 15 mg by mouth nightly. 0 Active methocarbamol 500 MG tablet Take 500 mg by mouth as needed. 0 Active dilTIAZem 120 MG tablet Take 120 mg by mouth nightly. 1 Active metoprolol succinate ER 50 MG 24 hr tablet Take 50 mg by mouth nightly. 1 Active acetaminophen 500 MG tablet Take 1,000 mg by mouth every 6 (six) hours as needed for Pain. Active Cyanocobalamin (VITAMIN B-12) 2500 MCG SL Tab Take 1 tablet by mouth daily. Active Vitamin D3, cholecalcifero l, 2000 UNIT Tab tablet Take 2,000 Units by mouth daily. Active zinc sulfate (ZINCATE) 220 MG capsule Take 50 mg by mouth daily. Active potassium chloride CR (KLOR-CON M) 20 MEQ tablet 2 Active dilTIAZem ER (TIAZAC) 120 MG 24 hr capsule Take 1 capsule (120 mg total) by mouth daily. 4 Active methylPREDNISo SAMANTA escobar, (MEDROL DOSEPAK) 4 MG tablet Take 1 tablet (4 mg total) by mouth see administration instructions. 6 TABLETS ON DAY ONE, 5 TABLETS DAY TWO, 4 TABLETS DAY THREE, 3 TABLETS DAY FOUR, 2 TABLETS DAY FIVE, AND 1 TABLET DAY SIX 1 each 4 Active Additional Information Patient not taking.Reported on 10/22/2023 nirmatrelvir & ritonavir 300/100 (PAXLOVID) 20 x 150 MG & 10 x 100MG tablet pack Take 3 tablets by mouth 2 (two) times daily. Take TWO nirmatrelvir 150 mg tablet(s) along with ONE ritonavir 100 mg tablet, with all three tablets taken together, twice daily for 5 days. May take with or without food. Swallow tablets whole. Do not chew, break or crush.. 30 tablet 4 Active Active Problems Problem Noted Date Diagnosed Date Gout 11/02/2012 Hyperlipidemia 11/02/2012 Hypertension 11/02/2012 Immunizations Immunization Administration Dates Next Due Hepatitis A (Generic) 01/23/1998 Hepatitis A (Havrix [address]) 01/30/1997 Hepatitis B (Generic: Adult) 12/15/1989 Influenza (Generic) 02/04/2019, 4,01/15/2012,2009,12/15/2008,12/08/2005,01/17/1998,1 04/02/1996 Influenza Adult (Generic) 03/06/2017,03/15/2015 MMR (MMRII) 07/13/1989 MODERNA COVID-19 (12+) MRNA, LNP-S, PF, 100 MCG/ 0.5 ML DOSE 05/10/2020,04/11/2020 Pneumococcal (Pneumovax 23) 03/15/2015 Pneumococcal (Prevnar 13) 12/05/2016 Td (TDVAX) 07/06/1989 Td (Tenivac) preservative free 07/06/1989 Tdap (Generic) 12/15/2008 Zoster (Zostavax) 72450 Unt/0.65Ml 05/01/2009 Family History Medical History Relation Comments Alcohol Abuse Brother No Known Problems Daughter 1 No Known Problems Daughter 2 Heart Disease Father Diabetes Mother Heart Disease Mother Kidney Disease Mother non functioning kidney Breast Cancer Sister 1 Cancer Sister 1 Hypertension Sister 2 Hypertension Sister 3 No Known Problems Son Relation Status Comments Brother Daughter 1 Alive Daughter 2 Alive Father (Age 65) Mother (Age 80) Sister 1 Alive Sister 2 Sister 3 Son Alive Social History Tobacco Use Types Packs/Day Years Used Date Smoking Tobacco: Never Smokeless Tobacco: Never Tobacco Cessation:Counseling Given: Yes Alcohol Use Standard Drinks/Week Comments No 0 (1 standard drink = 0.6 oz pur e alcohol) AUDIT-C Answer Date Recorded Frequency of Alcohol Consumption Never 06/04/2018 Average Number of Drinks Not on file 019 Frequency of Binge Drinking Not on file 10/2018 PHQ-2 Answer Date Recorded PHQ-2 Score - If the patient scores above 3, please move on to questions 3-9 0 05/29/2021 Sex and Gender Information Value Date Recorded Sex Assigned at Not on file Legal Sex Male 8:23 PM CDT Gender Identity Male 05/20/2021 9:30 AM FLAT BED KNITTER Sexual Orientation Straight 05/20/2021 9: 30 AM FLAT BED KNITTER Last Filed Vital Signs Vital Sign Reading Time Taken Comments Blood Pressure 129/69 10/22/2023 10:49 AM CDT Pulse 59 10/22/2023 10:49 AM CDT Temperature 37.2 C (98.9 F) 10/22/2023 10:49 AM CDT Respiratory Rate 18 10/22/2023 10:49 AM CDT Oxygen Saturation 99% 10/22/2023 10:49 AM CDT Inhaled Oxygen Concentration - - Weight 97.5 kg (215 lb) 10/22/2023 10:49 AM CDT Height 180.3 cm (5' 11 ) 10/22/2023 10:49 AM CDT Body Mass Index 29.99 10/22/2023 10:49 AM CDT Plan of Treatment Health Maintenance Due Date Last Done Comments Hepatitis C 12[birth year]31/1968 Annual Medicare Wellness Visit 2014 Colorectal Cancer Screening Colonoscopy (10 Years) 03/30/2020 03/30/2010 COVID-19 Vaccine ( season) 2023 02/11/2022, 04/19/2021, 05/10/2020, Additional history exists RSV Immunization or 60+ Years (1 - 1-dose 75+ series) 2024 DTaP, Tdap and Td Vaccines (3 - Td or Tdap) 12/02/2028 12/02/2018, 12/15/2008, 07/06/1989, Additional history exists Pneumococcal Vaccine: 50+ Years Completed 03/06/2017, 12/05/2016, 03/15/2015 Zoster Vaccines Completed 11/28/2020, 05/2020, 05/01/2009 Meningococcal B Vaccine Aged Out No l onger eligible based on patient's age to complete this topic Meningococcal Vaccine Aged Out No judd ras eligible based on patient's age to complete this topic RSV Immunizations Under 20 Months Aged Out No longer eligible based on patient's age to complete this topic Goals Goal Patient Goal Type Associated Problems Recent Progress Patient-Stated? Author Health - patient able to perform ADLs independently General Ben Benitez RN Procedures Procedure Name Priority Date/Time Associated Diagnosis Comments COLONOSCOPY Routine 03/30/2010 12:00 AM FLAT BED KNITTER from Last 3 Months or Most Recently Relevant to Health Maintenance Results * Colonoscopy (03/30/2010 12:00 AM FLAT BED KNITTER) 03/30/2010 03/30/2010 Narrative TOUCHWORKS TO EPIC CONVERSION - 12/04/2017 1:52 PM CDT normal Procedure Note Wyatt Piedra MD - 07/13/2018 normal us Generic Conversion Md [facility] GI PROCEDURE ORDERABLES Final Result TOUCHWORKS TO EPIC CONVERSION from Last 3 Months or Most Recently Relevant to Health Maintenance Insurance [facility] AETNA MEDICARE [facility] Advance Directives * Full Code (Latest Code Status on File) Date Activated Date Inactivated Comments 05/21/2021 12:29 PM 05/22/2021 5:42 PM Care Teams Manager Fast Food Relationship Specialty Start Date End Date Chrystal Clark MD [facility] office [address] [place] [id number] PCP - General FAMILY PRACTICE 09/10/20
--- OUTSIDE RECORDS SUMMARY | 2024-08-15 19:11 | XMS_ITS | Encounter Summary ---
Author Organization [facility] Address [address] [place] [address] Care Team Providers Care Mill Dresser Name Role Phone Caden Burch MD Unavailable [phone] Chrystal Clark MD Primary Care Provider [phone] Encounter Details Date Type Department Care Team (Latest Contact Info) Description 05/08/2021 Ohmxt Message Enc [facility]ispec[facility] - [facility] [address] [facility] [place] [address] Humberto Cevallos MD [address] [place] [address] JULIUS KEATING [id number] Laser Vaporization of the Prostate Social History Tobacco Use Types Packs/Day Years Used Date Smoking Tobacco: Never Smokeless Tobacco: Never Alcohol Use Standard Drinks/Week Comments No 0 (1 standard drink = 0.6 oz pur e alcohol) AUDIT-C Answer Date Recorded Frequency of Alcohol Consumption Never 06/04/2018 Average Number of Drinks Not on file 019 Frequency of Binge Drinking Not on file 10/2018 PHQ-2 Answer Date Recorded PHQ-2 Score - If the patient scores above 3, please move on to questions 3-9 0 04/24/2021 Sex and Gender Information Value Date Recorded Sex Assigned at Not on file Legal Sex Male 8:23 PM CDT Gender Identity Male 05/20/2021 9:30 AM GEOTHERMAL OPERATIONS ENGINEER Sexual Orientation Straight 05/20/2021 9: 30 AM GEOTHERMAL OPERATIONS ENGINEER COVID-19 Exposure Response Date Recorded In the last 10 days, have mariama u been in contact with someone who was confirmed or suspected to have Coronavirus/COVID-19? No / Unsure 05/06/2021 9:21 AM GEOTHERMAL OPERATIONS ENGINEER documented as of this encounter Progress Notes * Gabriela Martinez MA - 05/09/2021 12:44 PM CSTSummary: Questions Are you able to give him a call or I can if you let me know. HERMAL OPERATIONS ENGINEER documented in this encounter Plan of Treatment Not on file documented as of this encounter Visit Diagnoses Not on filedocumented in this encounter Additional Health Concerns Infection Onset Date Last Indicated Resolved Time COVID-19 Rule Out 10/22/2023 10/22/2023 10/22/2023 11:02 AM CDT COVID-19 Confirmed 10/22/2023 10/22/2023 12:32 AM CDT Assessment Noted Time PHQ-9 Depression Total Score: 0 04/24/19 22 8:26 AM GEOTHERMAL OPERATIONS ENGINEER documented as of this encounter Care Teams Mill Dresser Relationship Specialty Start Date End Date Caden Burch MD [address] [facility] [address] [place] [address] PCP - Med Group - [facility] Attributed Provider 03/30/15 03/29/22 Chrystal Clark MD [facility] office [address] [place] [address] PCP - General FAMILY PRACTICE 09/10/20 documented as of this encounter
--- OUTSIDE RECORDS SUMMARY | 2024-08-15 19:11 | XMS_ITS | Encounter Summary ---
Author Name [facility] Organization [facility] Address [address] [place] [address] Care Team Providers Care Contract Law Specialist Name Role Phone CHRYSTAL FLOYD Primary [...] German AETNA PREFERRED PROVIDER ORGANIZAT ION (PPO) [facility] Oct 03, 2015 [id number] [facility] PATIENT AETNA POINT OF SERVICE [facility] (I) Mar 30, 2013 [id number] [facility] AETNA PHARMACY MANAGEMENT PRESCRIPT ION RX PLAN Mar 30, 2013 [id number] [facility] PATIENT AETNA [facility] Oct 03, 2015 [id number] [facility] [place] [id number] PRESCRIPT ION [id number] July 28, 2006 [id number] SERENE BRUNSON [facility] PATIENT MEDICARE (WNR) MEDICARE (M) PART A Dec 28, 2014 PART A [id number] SERENE BRUNSON [facility] PATIENT MEDICARE (WNR) MEDICARE (M) PART B Dec 28, 2014 PART B [id number] [phone] SERENE BRUNSON [place] PATIENT MEDICARE (WNR) MEDICARE (M) PART A Dec 28, 2014 PART A [id number] SERENE BRUNSON [place] PATIENT MEDICARE (WNR) MEDICARE (M) PART B Dec 28, 2014 PART B [id number] SERENE BRUNSON AS PATIENT [facility] [id number] [phone] SERENE BRUNSON [place] PATIENT Selected Encounter This section includes the information on record at ID for the Encounter. Date/Time Encounter Type Encounter Description Reason Provider Source Apr 28, 2024 02:00 PM OFFICE O/P EST MOD 30 MIN PRIMARY CARE/MEDICINE ICD-10-CM I10 Essential (primary) hypertension CHRYSTAL FLOYD [facility] Encounter Template Text not used by ID Assessments - Encounter Diagnoses This section includes the primary and secondary diagnoses documented for the Encounter. Date/Time Primary/Secondary Diagnosis Diagnosis Name Provider Source May 10, 2024 07:20 AM PRIMARY Essential (primary) hypertension CHRYSTAL FLOYD [facility] May 10, 2024 07:20 AM SECONDARY Elevated prostate specific antigen [PSA] CHRYSTAL FLOYD [facility] May 10, 2024 07:20 AM SECONDARY Lumbago with sciatica, right side CHRYSTAL FLOYD [facility] Plan of Treatment: Future Appointments (+ 6 months) and Future Tests (+/- 45 days) The Plan of Treatment section includes future care activities for the patient from all ID treatmentfacilities. This section includes future appointments and future orders which are active, pending or scheduled. Future Appointments This section includes appointments that were scheduled to occur 6 months from the date of the Encounter, up to a maximum of 20 appointments. The data comes from all VA treatment facilities. Appointment Date/Time Appointment Type Appointme nt Facility Name May 12, 2024 03:30 PM AMBULATORY - NONE [facility] Jun 03, 2024 10:45 AM AMBULATORY - NONE [facility] Jun 16, 2024 04:00 PM AMBULATORY - MEDICINE [facility] August 23, 2024 04:00 PM AMBULATORY - MEDICINE [facility] Oct 24, 2024 10:30 AM AMBULATORY - MEDICINE [facility] Active, Pending, and Scheduled Orders This section includes a listing of several types of active, pending, and scheduled orders, including clinic medications orders, diagnostic test orders, procedure orders and consult orders; where the start date of the order is 45 days before the date of the Encounter or 45 days after the date of theEncounter. The data comes from all [facility]. Test Date/Time Test Type Test Details Facility Name Apr 28, 2024 12:00 AM Laboratory - Chemi stry Order PROST. SPECIFIC AG.(PB-STL) GOLD/RED SST SERUM [facility] Apr 28, 2024 12:00 AM Laboratory - Chemi stry Order BASIC METABOLIC PANEL GREEN LI/HEP BLD/PLAS PLASMA [facility] Apr 28, 2024 12:00 AM Laboratory - Chemi stry Order URINALYSIS (STL-PB) URINE [facility] Apr 28, 2024 12:00 AM Laboratory - Chemi stry Order CBC BLOOD [facility] Apr 28, 2024 12:00 AM Laboratory - Chemi stry Order HGA1C BLOOD [facility] Lab Results: +/- 30 days of the encounter This section includes the Chemistry and Hematology Lab Results on record with ID for the patient. Radiology Reports and Pathology Reports are provided separately, in subsequent sections. Lab Results This section contains the Chemistry/Hematology Results that were resulted 30 days before or 30 daysafter the date of the Encounter. Date/Time Source Result Type Result - Unit Interpretation Reference Range Specimen Type Comment May 12, 2024 03:17 PM [facility] I-STAT, CREAT (STL-MA) BLOOD Specimen Type: BLOOD Comment: Test Performed by: [id number] Meter #: [id number] Ordering Provider: CHRYSTAL FLOYD Report Released Date/Time: May 12, 2024 03:19 PM Reporting Lab: [facility] [address] [id number] Performing Lab: [facility] [address] [id number] I-STAT, CREAT (STL-MA) 1.1 mg/dL 0.7-1.3 Vital Signs: All taken on the encounter date This section contains inpatient and outpatient Vital Signs collected on the date of the Encounter. Date/Time Temperature Pulse Blood Pressure Respiratory Rate SP02 Pain Height Weight Body Mass Index Source Apr 28, 2024 02:03 PM 97.9 46 132/71 18 98 0 225.2 31 [facility] Social History: Smoking Status (Most current) and Tobacco Use (All prior to encounter date) This section includes the most current, and the historical, smoking and tobacco- related health factors from the ID facility where the Encounter took place. Current Smoking Status This section includes the most current smoking, or tobacco-related health factor, from the ID facility where the Encounter took place. Date/Time Current Smoking Status Comment Facil ity Jul 16, 2021 03:00 PM ID-TOBACCO NEVER USED [facility] Tobacco Use History This section includes a history of the smoking, or tobacco-related health factors, that were collected on or before the date of the Encounter. The data comes from the ID facility where the Encounter took place. Date/Time Smoking Status/Tobacco Use Comment F acility Oct 29, 2018 12:13 PM ID-TOBACCO NEVER USED [facility] Radiology Reports: +/- 30 days of the [...] the Encounter. The data comes from all ID treatment facilities. Date/Time Radiology Report Provider Source May 12, 2024 03:[address] UROGRAM-P: MARIA EUGENIA BRUNSON [id number] -[id number] M Exm Date: MAY 12, 2024@15:05 Req Phys: CHRYSTAL FLOYD Loc: [facility]-ST CLR PACT 2 PCP (Elli Holloway Loc: [facility] IMAGING [facility] Service: Unknown [facility], [address] [place] [address] (Case [id number] COMPLETE) CT ABDOMEN AND PELVIS WITH AND WI(CT Detailed) CPT:71242 Contrast Media : Non-ionic Iodinated Reason for Study: mass on l/s MRI spin Clinical History: Responsible Attending: Chrystal Floyd MD Attending Contact Number: [phone] Resident Contact Number: Mass noted on MRI [...] 15, 2024 Date Verified: MAY 15, 2024 [employer]iner E-Sig:/ES/Maria Eugenia Feranndo MD Report: CASE #: [id number] DATE:05/12/2024 5:17 PM CLINICAL HISTORY:mass on l/s [...] Interpreting Staff: Maria Eugenia Fernando MD, Radiologist (C[employer] Reliner) /MARIA EUGENIA [facility] Encounter Notes: All associated encounter notes This section contains the clinical notes associated to the Encounter. Date/Time Encounter Note(s) Provider Source Jun 16, 2024 04:24 PM ADDENDUM: LOCAL TITLE: Addendum STANDARD TITLE: ADDENDUM DATE OF NOTE: JUN 16, 2024@16:24:32 ENTRY DATE: JUN 16, 2024@16:24:33 AUTHOR: CHRYSTAL FLOYD EXP COSIGNER: URGENCY: STATUS: COMPLETED Please inform patient that his ctscan of abd - showed an enlarged prostate that is pushing on the bladder . His bladder is irregular . I have order some labs for him to get and I have referred him to our urology /es/ CHRYSTAL FLOYD Signed: 06/16/2024 16:28 Receipt Acknowledged By: 06/21/2024 14:42 /es/ DARYN LEVY RN REGISTERED NURSE --- Original Document --- 04/28/24 PRIMARY CARE PROVIDER ESTABLISHED VISIT STL: Patient is 73 and WHITE Self Identified Gender - Man Reason for visit:Scheduled follow-up Chief Complaint: Patient wants meds History of Present Illness: Patient states he see a private urologist who said he had a prostate biopsy and was told it was negative . Stewart had MRI of lumbar spine in 01/2024 showe multilevel degenerative chanes in the lumbar spine Most severe cantosi L4- 5 . State the robaxin has help with his right sciatica . Notes improvement with the robaxin Patient states he has hx of very large prostate , he notes that his prostate was very large , he has had TURP , bipsoy and cystscopy and he has a private urologist that he sees , urology note in [facility] showed psa 25 Note significant reduction of hearing on the left side Patienst states the potassium pill made him feel different so he has been cutting the pill in half Problem List: 1) Atrial tachycardia 2) Systemic arterial hypertension 3) Obesity 4) Atrial tachycardia 5) HTN - Hypertension 6) Obesity 7) COVID-19 Immunization: ADMINISTERED Immunization Series Date Facility Reaction Info COVID-19 (MODERNA), MRNA, LNP-S,* 1 02/11/2022 [facility] <C> COVID-19 (MODERNA), MRNA, LNP-S,* 2 05/12/2020 [facility]* COVID-19 (MODERNA), MRNA, LNP-S,* 1 04/13/2020 [facility]* COVID-19 (PFIZER), MRNA, LNP-S, * 3 04/19/2021 [facility]* COVID-19 (PFIZER), MRNA, LNP-S, * 1 04/19/2021 [facility] HEP A, ADULT 1 01/30/1997 [facility] HEP B, ADULT 1 12/15/1989 [facility] INFLUENZA, ADJUVANTED, QUADRIVAL* 02/11/2022 [facility] INFLUENZA, ADJUVANTED, TRIVALENT* 02/04/2019 [facility] INFLUENZA, HIGH-DOSE, QUADRIVALE* 01/27/2023 [facility] INFLUENZA, HIGH-DOSE, TRIVALENT,* 12/28/2023 [facility] INFLUENZA, SPLIT VIRUS, TRIVALEN* 03/06/2017 [facility] INFLUENZA, SPLIT VIRUS, TRIVALEN* 8 03/15/2015 [facility] INFLUENZA, SPLIT VIRUS, TRIVALEN* 7 01/18/2014 [facility] INFLUENZA, SPLIT VIRUS, TRIVALEN* 6 01/15/2012 [facility] INFLUENZA, SPLIT VIRUS, TRIVALEN* 5 12/26/2009 [facility] INFLUENZA, SPLIT VIRUS, TRIVALEN* 4 12/15/2008 [facility] INFLUENZA, SPLIT VIRUS, TRIVALEN* 3 12/08/2005 [facility] INFLUENZA, SPLIT VIRUS, TRIVALEN* 2 01/17/1998 [facility] INFLUENZA, SPLIT VIRUS, TRIVALEN* 1 01/31/1997 [facility] INFLUENZA, UNSPECIFIED FORMULATI* SafB <C> MMR 1 07/13/1989 [facility] PNEUMOCOCCAL CONJUGATE PCV 13 2 12/05/2016 [facility] PNEUMOCOCCAL POLYSACCHARIDE PPV23 1 03/15/2015 [facility] TD (ADULT), 2 LF TETANUS TOXOID,* 1 07/06/1989 [facility] TDAP 12/02/2018 [facility] <C> TDAP 1 12/15/2008 [facility] ZOSTER LIVE 1 05/01/2009 [facility] CONTRAINDICATED No data available REFUSED ======= Immunization Date Facility Info COVID-19 ([facility]), MRNA, LNP-S, * 04/28/2024 [facility] <I> COVID-19 (PFIZER), MRNA, LNP-S, * 12/28/2023 [facility] <I> COVID-19 ([facility]), MRNA, LNP-S, * 01/27/2023 [facility] <I> PNEUMOCOCCAL CONJUGATE, UNSPECIF* 07/24/2022 [facility] <I> ZOSTER RECOMBINANT 04/28/2024 [facility] <I> ZOSTER RECOMBINANT 12/28/2023 [facility] <I> ZOSTER RECOMBINANT 01/27/2023 [facility] <I> ZOSTER RECOMBINANT 07/24/2022 [facility] <I> <C> See the Detailed Immunizations Health Summary Component[DIM] for Comments <I> See the Detailed Immunizations Health Summary Component[DIM] for Additional Information * Value is truncated; see the Detailed Immunizations Health Summary Component[DIM] for complete text Medication Review: The essential med list for review which includes the patient's active VA prescriptions and if applicable, remote VA prescriptions, non-VA prescriptions, and discontinued VA prescriptions within the last 90 days and known allergies including local and remote allergies have been reviewed. Allergies:Patient has answered NKA Active and Recently Outpatient Medications (excluding Supplies): Active Outpatient Medications Status 1) POTASSIUM CL 20MEQ SA TAB (DISPERSIBLE) TAKE ONE TABLET BY HOLD MOUTH ONCE A DAY TAKE WITH FOOD Indication: FOR POTASSIUM SUPPLEMENTATION Active Non-VA Medications Status 1) Non-VA ALBUTEROL 90MCG (CFC-F) 200D ORAL INHL 2 PUFFS BY ACTIVE ORAL INHALATION FOUR TIMES A DAY 2) Non-VA ALLOPURINOL 300MG TAB 300MG BY MOUTH ONCE A DAY ACTIVE 3) Non-VA ASCORBIC ACID 500MG TAB 500MG BY MOUTH ONCE A DAY ACTIVE 4) Non-VA ASPIRIN 81MG EC TAB 81MG BY MOUTH ONCE A DAY ACTIVE 5) Non-VA CHOLECALCIF 50MCG (D3-2,000UNIT) TAB 50MCG BY MOUTH ACTIVE ONCE A DAY 6) Non-VA CYANOCOBALAMIN (OTC) TAB 25 MCG BY MOUTH ONCE A DAY ACTIVE 7) Non-VA DICLOFENAC NA 75MG EC TAB 75MG BY MOUTH EVERY MORNING ACTIVE AND EVENING 8) Non-VA DILTIAZEM (EQV-TIAZAC) 120MG 24HR CAP 120MG BY MOUTH ACTIVE ONCE A DAY 9) Non-VA FISH OIL 1000MG (500MG DHA/EPA) CAP 2000MG BY MOUTH ACTIVE TWICE A DAY 10) Non-VA HCTZ 25MG/TELMISARTAN 80MG TAB 1 TABLET BY MOUTH ONCE ACTIVE A DAY 11) Non-VA METHOCARBAMOL 500MG TAB 1 TABLET BY MOUTH FOUR TIMES ACTIVE A DAY NEEDED 12) Non-VA METHYLPREDNISOLONE 4MG TAB DOSEPAK,21 TABLETS BY ACTIVE MOUTH DIRECTED Indication: allergies 13) Non-VA METOPROLOL SUCCINATE 100MG SA TAB 50MG BY MOUTH ONCE ACTIVE A DAY 14) Non-VA POTASSIUM CL 20MEQ SA TAB (DISPERSIBLE) 20MEQ BY ACTIVE MOUTH ONCE A DAY 15) Non-VA ROSUVASTATIN CA 20MG TAB 10MG BY MOUTH EVERY EVENING ACTIVE Indication: FOR HIGH CHOLESTEROL 16) Non-VA ZINC 50MG TAB 50MG BY MOUTH ONCE A DAY ACTIVE 17 Total Medications Physical Exam VITALS (most recent, as listed in the electronic record): B/P: 132/71 (04/28/2024 14:03) Pulse: 46 (04/28/2024 14:03) Temperature: 97.9 F [36.6 C] (04/28/2024 14:03) Weight: 225.2 lb [102.15 kg] (04/28/2024 14:03) Height: 71 in [180.3 cm] (10/25/2020 10:00) BMI: 31.5 Pain: 0 (04/28/2024 14:03) (0-10 scale) General: WD, WN in NAD, pleasant affect Skin: no lesions or rashes noted. HEENT: NC/AT, PERRL, EOMI, no scleral icterus, TMs intact, posterior pharynx is clear, no tonsillar adenopathy Neck: Supple, no cervical MATTHEW, no thyromegaly or goiters palpated. Lungs: CTA bilat, no W/R/R Heart: RRR, nl S1/S2, no murmurs, no S3/S4 gallops. Abdomen: Soft, NT/ND. No HSM or masses palpated. Musculoskeletal: 2+ deep tendon reflexes bilaterally, 5/5 motor and sensory intact of UE/LE Data Review: HGA1C 6.0 % 12/28/2023 09:36 Lipid Panel: TRIGLYCERIDE 218 H mg/dL 12/28/2023 09:36 CHOLESTEROL 190 mg/dL 12/28/2023 09:36 HDL(New) 44 mg/dL 12/28/2023 09:36 CALCULATED LDL 102 mg/dL 12/28/2023 09:36 CMP: SODIUM 141 mEq/L 12/28/2023 09:36 POTASSIUM 3.4 L mEq/L 12/28/2023 09:36 CHLORIDE 103 mEq/L 12/28/2023 09:36 UREA NITROGEN 15.3 mg/dL 12/28/2023 09:36 CREATININE 1.06 mg/dL 12/28/2023 09:36 CALCIUM 9.8 mg/dL 12/28/2023 09:36 PROTEIN 6.7 g/dL 12/28/2023 09:36 ALBUMIN 4.1 g/dL 12/28/2023 09:36 ALKALINE PHOSPHATASE 108 U/L 12/28/2023 09:36 ALT/SGPT 25 U/L 12/28/2023 09:36 AST/SGOT 21 U/L 12/28/2023 09:36 TOTAL BILIRUBIN 1.6 H mg/dL 12/28/2023 09:36 CARBON DIOXIDE 29 mEq/L 12/28/2023 09:36 GLUCOSE 113 H mg/dL 12/28/2023 09:36 EGFR (CKD-EPI 2020) 74.1 12/28/2023 09:36 CBC: WBC 5.9 10*3/uL 12/28/2023 09:36 RBC 4.24 10*6/uL 12/28/2023 09:36 HGB 14.0 g/dL 12/28/2023 09:36 HCT 40.0 % 12/28/2023 09:36 MCV 94.3 fL 12/28/2023 09:36 MCH 33.0 pg 12/28/2023 09:36 MCHC 35.0 g/dL 12/28/2023 09:36 RDW 13.1 % 12/28/2023 09:36 PLT 147 L 10*3/uL 12/28/2023 09:36 MPV 10.5 fL 12/28/2023 09:36 NEUTROPHILS, AUTO % 57 % 12/28/2023 09:36 LYMPHOCYTES, AUTO % 29 % 12/28/2023 09:36 MONOCYTES, AUTO % 9 % 12/28/2023 09:36 EOSINOPHILS, AUTO % 4 % 12/28/2023 09:36 BASOPHILS, AUTO % 1 % 12/28/2023 09:36 NEUTROPHILS, ABSOLUTE 3.36 10*3/uL 12/28/2023 09:36 LYMPHOCYTES, ABSOLUTE 1.72 10*3/uL 12/28/2023 09:36 MONOCYTES, ABSOLUTE 0.53 10*3/uL 12/28/2023 09:36 EOSINOPHILS, ABSOLUTE 0.24 10*3/uL 12/28/2023 09:36 BASOPHILS, ABSOLUTE 0.05 10*3/uL 12/28/2023 09:36 PSA: No PSA EO data found TSH: TSH 1.423 uIU/mL 12/28/2023 09:36 UA: No URINALYSIS EO data found Vitamin D: VITAMIN D, 25-HYDROXY 50.9 ng/mL 12/28/2023 09:36 Micral/Creat Profile: No data available Result: Acceptable Follow-up Action: Data results reviewed with patient and/or caregiver. Assessment/Plan: 1 sciatica has improved with muscle relaxor 2 hearing loss on the left - scheduled for ABR 3 mass on bladder on MRI - needs cturogram , cbc, bmp and UA 4 htn stable - continue me RTC: Phone visit in 3 weeks to go over studies 6 months CLINICAL REMINDERS COMPLETED /kathy/ CHRYSTAL FLOYD Signed: 04/28/2024 15:12 [facility] Apr 28, 2024 02:41 PM PRIMARY CARE NOTE: LOCAL TITLE: PRIMARY CARE PROVIDER ESTABLISHED VISIT ST STANDARD TITLE: PRIMARY CARE NOTE DATE OF NOTE: APR 28, 2024@14:41 ENTRY DATE: APR 28, 2024@14:41:56 AUTHOR: CHRYSTAL FLOYD EXP COSIGNER: URGENCY: STATUS: COMPLETED PRIMARY CARE PROVIDER ESTABLISHED VISIT ST Has ADDENDA Patient is 73 and WHITE Self Identified Gender - Man Reason for visit:Scheduled follow-up Chief Complaint: Patient wants meds History of Present Illness: Patient states he see a private urologist who said he had a prostate biopsy and was told it was negative . Stewart had MRI of lumbar spine in 01/2024 showe multilevel degenerative chanes in the lumbar spine Most severe cantosi L4- 5 . State the robaxin has help with his right sciatica . Notes improvement with the robaxin Patient states he has hx of very large prostate , he notes that his prostate was very large , he has had TURP , bipsoy and cystscopy and he has a private urologist that he sees , urology note in [facility] showed psa 25 Note significant reduction of hearing on the left side Patienst states the potassium pill made him feel different so he has been cutting the pill in half Problem List: 1) Atrial tachycardia 2) Systemic arterial hypertension 3) Obesity 4) Atrial tachycardia 5) HTN - Hypertension 6) Obesity 7) COVID-19 Immunization: ADMINISTERED Immunization Series Date Facility Reaction Info COVID-19 (MODERNA), MRNA, LNP-S,* 1 02/11/2022 [facility] <C> COVID-19 (MODERNA), MRNA, LNP-S,* 2 05/12/2020 [facility]* COVID-19 (MODERNA), MRNA, LNP-S,* 1 04/13/2020 [facility]* COVID-19 (PFIZER), MRNA, LNP-S, * 3 04/19/2021 [facility]* COVID-19 (PFIZER), MRNA, LNP-S, * 1 04/19/2021 [facility] HEP A, ADULT 1 01/30/1997 [facility] HEP B, ADULT 1 12/15/1989 [facility] INFLUENZA, ADJUVANTED, QUADRIVAL* 02/11/2022 [facility] INFLUENZA, ADJUVANTED, TRIVALENT* 02/04/2019 [facility] INFLUENZA, HIGH-DOSE, QUADRIVALE* 01/27/2023 [facility] INFLUENZA, HIGH-DOSE, TRIVALENT,* 12/28/2023 [facility] INFLUENZA, SPLIT VIRUS, TRIVALEN* 03/06/2017 [facility] INFLU[facility]ZA, SPLIT VIRUS, TRIVALEN* 8 03/15/2015 [facility] INFLUENZA, SPLIT VIRUS, TRIVALEN* 7 01/18/2014 [facility] INFLUENZA, SPLIT VIRUS, TRIVALEN* 6 01/15/2012 [facility] INFLUENZA, SPLIT VIRUS, TRIVALEN* 5 12/26/2009 [facility] INFLUENZA, SPLIT VIRUS, TRIVALEN* 4 12/15/2008 [facility] INFLUENZA, SPLIT VIRUS, TRIVALEN* 3 12/08/2005 [facility] INFLUENZA, SPLIT VIRUS, TRIVALEN* 2 01/17/1998 [facility] INFLUENZA, SPLIT VIRUS, TRIVALEN* 1 01/31/1997 [facility] INFLUENZA, UNSPECIFIED FORMULATI* SafB <C> MMR 1 07/13/1989 [facility] PNEUMOCOCCAL CONJUGATE PCV 13 2 12/05/2016 [facility] PNEUMOCOCCAL POLYSACCHARIDE PPV23 1 03/15/2015 [facility] TD (ADULT), 2 LF TETANUS TOXOID,* 1 07/06/1989 [facility] TDAP 12/02/2018 [facility] <C> TDAP 1 12/15/2008 [facility] ZOSTER LIVE 1 05/01/2009 [facility] CONTRAINDICATED No data available REFUSED ======= Immunization Date Facility Info COVID-19 ([facility]), MRNA, LNP-S, * [facility]24 [facility] <I> COVID-19 (P[facility]ZER), MRNA, LNP-S, * 12/28/2023 [facility] <I> COVID-19 (PFIZER), MRNA, LNP-S, * 01/27/2023 [facility] <I> PNEUMOCOCCAL CONJUGATE, UNSPECIF* 07/24/2022 [facility] <I> ZOSTER RECOMBINANT 04/28/2024 [facility] <I> ZOSTER RECOMBINANT 12/28/2023 [facility] <I> ZOSTER RECOMBINANT 01/27/2023 [facility] <I> ZOSTER RECOMBINANT 07/24/2022 [facility] <I> <C> See the Detailed Immunizations Health Summary Component[DIM] for Comments <I> See the Detailed Immunizations Health Summary Component[DIM] for Additional Information * Value is truncated; see the Detailed Immunizations Health Summary Component[DIM] for complete text Medication Review: The essential med list for review which includes the patient's active VA prescriptions and if applicable, remote VA prescriptions, non-VA prescriptions, and discontinued VA prescriptions within the last 90 days and known allergies including local and remote allergies have been reviewed. Allergies:Patient has answered NKA Active and Recently Outpatient Medications (excluding Supplies): Active Outpatient Medications Status 1) POTASSIUM CL 20MEQ SA TAB (DISPERSIBLE) TAKE ONE TABLET BY HOLD MOUTH ONCE A DAY TAKE WITH FOOD Indication: FOR POTASSIUM SUPPLEMENTATION Active Non-VA Medications Status 1) Non-VA ALBUTEROL 90MCG (CFC-F) 200D ORAL INHL 2 PUFFS BY ACTIVE ORAL INHALATION FOUR TIMES A DAY 2) Non-VA ALLOPURINOL 300MG TAB 300MG BY MOUTH ONCE A DAY ACTIVE 3) Non-VA ASCORBIC ACID 500MG TAB 500MG BY MOUTH ONCE A DAY ACTIVE 4) Non-VA ASPIRIN 81MG EC TAB 81MG BY MOUTH ONCE A DAY ACTIVE 5) Non-VA CHOLECALCIF 50MCG (D3-2,000UNIT) TAB 50MCG BY MOUTH ACTIVE ONCE A DAY 6) Non-VA CYANOCOBALAMIN (OTC) TAB 25 MCG BY MOUTH ONCE A DAY ACTIVE 7) Non-VA DICLOFENAC NA 75MG EC TAB 75MG BY MOUTH EVERY MORNING ACTIVE AND EVENING 8) Non-VA DILTIAZEM (EQV-TIAZAC) 120MG 24HR CAP 120MG BY MOUTH ACTIVE ONCE A DAY 9) Non-VA FISH OIL 1000MG (500MG DHA/EPA) CAP 2000MG BY MOUTH ACTIVE TWICE A DAY 10) Non-VA HCTZ 25MG/TELMISARTAN 80MG TAB 1 TABLET BY MOUTH ONCE ACTIVE A DAY 11) Non-VA METHOCARBAMOL 500MG TAB 1 TABLET BY MOUTH FOUR TIMES ACTIVE A DAY NEEDED 12) Non-VA METHYLPREDNISOLONE 4MG TAB DOSEPAK,21 TABLETS BY ACTIVE MOUTH DIRECTED Indication: allergies 13) Non-VA METOPROLOL SUCCINATE 100MG SA TAB 50MG BY MOUTH ONCE ACTIVE A DAY 14) Non-VA POTASSIUM CL 20MEQ SA TAB (DISPERSIBLE) 20MEQ BY ACTIVE MOUTH ONCE A DAY 15) Non-VA ROSUVASTATIN CA 20MG TAB 10MG BY MOUTH EVERY EVENING ACTIVE Indication: FOR HIGH CHOLESTEROL 16) Non-VA ZINC 50MG TAB 50MG BY MOUTH ONCE A DAY ACTIVE 17 Total Medications Physical Exam VITALS (most recent, as listed in the electronic record): B/P: 132/71 (04/28/2024 14:03) Pulse: 46 (04/28/2024 14:03) Temperature: 97.9 F [36.6 C] (04/28/2024 14:03) Weight: 225.2 lb [102.15 kg] (04/28/2024 14:03) Height: 71 in [180.3 cm] (10/25/2020 10:00) BMI: 31.5 Pain: 0 (04/28/2024 14:03) (0-10 scale) General: WD, WN in NAD, pleasant affect Skin: no lesions or rashes noted. HEENT: NC/AT, PERRL, EOMI, no scleral icterus, TMs intact, posterior pharynx is clear, no tonsillar adenopathy Neck: Supple, no cervical MATTHEW, no thyromegaly or goiters palpated. Lungs: CTA bilat, no W/R/R Heart: RRR, nl S1/S2, no murmurs, no S3/S4 gallops. Abdomen: Soft, NT/ND. No HSM or masses palpated. Musculoskeletal: 2+ deep tendon reflexes bilaterally, 5/5 motor and sensory intact of UE/LE Data Review: HGA1C 6.0 % 12/28/2023 09:36 Lipid Panel: TRIGLYCERIDE 218 H mg/dL 12/28/2023 09:36 CHOLESTEROL 190 mg/dL 12/28/2023 09:36 HDL(New) 44 mg/dL 12/28/2023 09:36 CALCULATED LDL 102 mg/dL 12/28/2023 09:36 CMP: SODIUM 141 mEq/L 12/28/2023 09:36 POTASSIUM 3.4 L mEq/L 12/28/2023 09:36 CHLORIDE 103 mEq/L 12/28/2023 09:36 UREA NITROGEN 15.3 mg/dL 12/28/2023 09:36 CREATININE 1.06 mg/dL 12/28/2023 09:36 CALCIUM 9.8 mg/dL 12/28/2023 09:36 PROTEIN 6.7 g/dL 12/28/2023 09:36 ALBUMIN 4.1 g/dL 12/28/2023 09:36 ALKALINE PHOSPHATASE 108 U/L 12/28/2023 09:36 ALT/SGPT 25 U/L 12/28/2023 09:36 AST/SGOT 21 U/L 12/28/2023 09:36 TOTAL BILIRUBIN 1.6 H mg/dL 12/28/2023 09:36 CARBON DIOXIDE 29 mEq/L 12/28/2023 09:36 GLUCOSE 113 H mg/dL 12/28/2023 09:36 EGFR (CKD-EPI 2020) 74.1 12/28/2023 09:36 CBC: WBC 5.9 10*3/uL 12/28/2023 09:36 RBC 4.24 10*6/uL 12/28/2023 09:36 HGB 14.0 g/dL 12/28/2023 09:36 HCT 40.0 % 12/28/2023 09:36 MCV 94.3 fL 12/28/2023 09:36 MCH 33.0 pg 12/28/2023 09:36 MCHC 35.0 g/dL 12/28/2023 09:36 RDW 13.1 % 12/28/2023 09:36 PLT 147 L 10*3/uL 12/28/2023 09:36 MPV 10.5 fL 12/28/2023 09:36 NEUTROPHILS, AUTO % 57 % 12/28/2023 09:36 LYMPHOCYTES, AUTO % 29 % 12/28/2023 09:36 MONOCYTES, AUTO % 9 % 12/28/2023 09:36 EOSINOPHILS, AUTO % 4 % 12/28/2023 09:36 BASOPHILS, AUTO % 1 % 12/28/2023 09:36 NEUTROPHILS, ABSOLUTE 3.36 10*3/uL 12/28/2023 09:36 LYMPHOCYTES, ABSOLUTE 1.72 10*3/uL 12/28/2023 09:36 MONOCYTES, ABSOLUTE 0.53 10*3/uL 12/28/2023 09:36 EOSINOPHILS, ABSOLUTE 0.24 10*3/uL 12/28/2023 09:36 BASOPHILS, ABSOLUTE 0.05 10*3/uL 12/28/2023 09:36 PSA: No PSA EO data found TSH: TSH 1.423 uIU/mL 12/28/2023 09:36 UA: No URINALYSIS EO data found Vitamin D: VITAMIN D, 25-HYDROXY 50.9 ng/mL 12/28/2023 09:36 Micral/Creat Profile: No data available Result: Acceptable Follow-up Action: Data results reviewed with patient and/or caregiver. Assessment/Plan: 1 sciatica has improved with muscle relaxor 2 hearing loss on the left - scheduled for ABR 3 mass on bladder on MRI - needs cturogram , cbc, bmp and UA 4 htn stable - continue me RTC: Phone visit in 3 weeks to go over studies 6 months CLINICAL REMINDERS COMPLETED /jess FLOYD Signed: 04/28/2024 15:12 06/16/2024 ADDENDUM STATUS: COMPLETED Please inform patient that his ctscan of abd - showed an enlarged prostate that is pushing on the bladder . His bladder is irregular . I have order some labs for him to get and I have referred him to our urology /kathy/ CHRYSTAL FLOYD Signed: 06/16/2024 16:28 Receipt Acknowledged By: * AWAITING SIGNATURE * DARYN ANDERSON [facility] Apr 28, 2024 02:07 PM NURSING NOTE: LOCAL TITLE: V15 PACT FACE TO FACE NOTE STL STANDARD TITLE: NURSING NOTE DATE OF NOTE: APR 28, 2024@14:07 ENTRY DATE: APR 28, 2024@14:07:08 AUTHOR: MARY GRIFFITH EXP COSIGNER: URGENCY: STATUS: COMPLETED Provider Visit: Patient Identifiers : Full Name Date of Reason for visit: Established Follow-Up Mode of Arrival: Ambulatory Allergy Review: Patient has answered NKA Allergy list reviewed and remains current. Recent Vital Signs: Temperature: 97.9 F [36.6 C] (04/28/2024 14:03) Pulse: 46 (04/28/2024 14:03) Respiration: 18 (04/28/2024 14:03) B/P: 132/71 (04/28/2024 14:03) Pain: 0 (04/28/2024 14:03) Wt: 225.2 lb [102.15 kg] (04/28/2024 14:03) Ht: 71 in [180.3 cm] (10/25/2020 10:00) BMI: 31.5 POX: 98% (04/28/2024 14:03) PERSONAL HEALTH INVENTORY Notes: No data available for PHI note titles PERSONAL HEALTH INVENTORY - MAP: No data available for PHI MAP What matters most to you in your life right now? 's Response: BEING PAIN FREE Would you like to discuss any personal problem, family problem, alcohol use, drug use, or a mental or emotional illness? No My [facility] ([facility]), please select appointment type: Face to face: Yes- Done Contact provided Primary Care phone number and encouraged to call if any questions or concerns. Review that after hours nurse line [phone] and emergency room are available 20/10 for patient use. Contact verbalized good understanding. COVID-19 Immunization - L,N,P,PH,U: Refused Pfizer Monovalent COVID-19 vaccine Immunization: COVID-19 (InnoCyte), MRNA, LNP-S, PF, YUE-SUCROSE, 30 MCG/0.3 ML (AGES 12+ YEARS) Refusal Reason: PATIENT DECISION Patient refuses all immunization(s) in the COVID-19 group Date Documented: 04/28/24 14:14 Alcohol Use Screen (AUDIT-C) - V: Alcohol Screen: SCREEN FOR ALCOHOL (AUDIT-C) An alcohol screening test (AUDIT-C) was negative (score=0). 1. How often did you have a drink containing alcohol in the past year? Consider a drink to be a 12 ounce can or bottle of regular beer, 8 ounces of malt liquor, a 5 ounce glass of table wine, or a 1.5 ounce shot of liquor (like scotch, gin, or vodka). Never 2. How many drinks containing alcohol did you have on a typical day when you were drinking in the past year? Response not required due to responses to other questions. 3. How often did you have six or more drinks on one occasion in the past year? Response not required due to responses to other questions. Herpes Zoster (Shingles) Vaccine - L,N,P,PH,U: The patient declines to receive the recommended dose of zoster (shingles) vaccine. Immunization: ZOSTER RECOMBINANT Refusal Reason: PATIENT DECISION Patient refuses all immunization(s) in the ZOSTER group Date Documented: 04/28/24 14:15 Learning Assessment: - * This patient's learning ABILITIES, BARRIERS to learning, CULTURAL and ROMAN CATHOLIC beliefs, and learning PREFERENCES were assessed. Following are findings of note: Patient reads well. LANGUAGE Patient reports that Bulgarian is preferred language for healthcare. 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 Patient reports learning preference is attending one-to-one or group demonstrations. Patient reports learning preference is looking at pictures or viewing videos. /kathy/ MARY GRIFFITH LICENSED PRACTICAL NURSE Signed: 04/28/2024 14:15 MARY GRIFFITH [facility]
--- OUTSIDE RECORDS SUMMARY | 2024-08-15 19:11 | XMS_ITS | Continuity of Care Document ---
Author Name [facility] Organization [facility] Care Team Providers Care Blood Donor Recruiter Supervisor Name Role Phone [facility] Unavailable Unavailable Problems Combined list of problems from Department of Defense and Veterans Affairs facilities. It does not include entries that were removed or entered in error. Problem Status Onset Date Problem Type Date of Resolution Comments Source Atrial tachycardia Active Condition [facility] COVID-19 Active Condition [facility] Elevated Prostate Specific antigen [psa] (ICD-9-CM 790.93) Active Condition [facility] Essential Hypertension (ICD-9-CM 401.9) Active Condition [facility] Gout * (ICD-9-CM 274.9) Active Condition [facility] Heel: arthralgia (ICD-9-CM 719.48) Active Condition [facility] HTN - Hypertension Active Condition [facility] Hyperlipidemia * (ICD-9-CM 272.4) Active Condition [facility] Hypertensive retinopathy (ICD-9-CM 362.11) Active Condition [facility] Hypertriglyceridemia * (ICD-9-CM 272.1) Active Condition [facility] Hypertrophy (Benign) of Prostate without Urinary obstruction and other lower Uri Active Condition [facility] Obesity Active Condition [facility] Sensorineural Hearing Loss * (ICD-9-CM 389.10) Active Condition [facility] Systemic arterial hypertension Active Condition [facility] 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 [facility] Outpatient Physician Consultation Active Condition [facility] ORGANIC IMPOTENCE Active Condition DoD ATYPICAL CHEST PAIN Inactive Condition D oD pain in the hands Active Condition DoD foot pain (soft tissue) Active Condition [facility] Glaucoma Screening Inactive Condition Do D visit for: issue repeat prescription for medication Inactive Condition [facility] Laboratory Studies Inactive Condition Do D TINNITUS SUBJECTIVE Active Condition Do D SENSORINEURAL HEARING LOSS ASYMMETRICAL Active Condition DoD HEARING LOSS Active Condition [facility] GOUT Active Condition DoD COMMON COLD Inactive Condition DoD RETINOPATHY HYPERTENSIVE LEFT EYE Active Condition DoD Patient Education - Pre-Procedure Teaching Active Condition DoD visit for: screening malignant neoplasm colon Active Condition DoD HERPES ZOSTER (SHINGLES) Inactive Condition DoD CATARACT PRESENILE CORTICAL Active Condition DoD visit for: laboratory Active Condition Patient notified of lab results. No further questions and pt aware to make appt come June timeframe. DoD visit for: administrative purpose Inactive Condition DoD NORMAL ROUTINE HISTORY AND PHYSICAL Active Condition Next ph ysical exam due in aprll order annual labs for apt DoD diarrhea Active Condition DoD EUSTACHIAN TUBE DYSFUNCTION RIGHT EAR Active Condition Pt wit h ETD due to mild sinus congestionPt reports min relief with the entexwill cont entex but add saline nasal and flonase DoD Physical Examination Inactive Condition again stress diet and exercise DoD abdominal pain Inactive Condition Admit sole in hospital for abd painDiagnosed with acute gastroenteritisPt symptoms resolved in 305 daysCurrently feels wellNo further treatment needed DoD ASTIGMATISM - REGULAR Active Condition DoD Serology Prostate-specific Antigen (PSA) Elevated Active Condition will call with results DoD HYPERTENSION (SYSTEMIC) Active Condition Refilled the sa me dose of med as pt was on previously. Patient to schedule appt with PCM for more consistent BP f/u and med managment. 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 DoD OSTEOARTHRITIS Active Condition pt wi th mild OA of the joints DoD Blood Pressure Isolated Elevated Active Condition elevated b lood pressure in clinicreports BP of 120/70 at homept will tract at home and bring to clinic DoD HYPERLIPIDEMIA Active Condition will cont zocor 40 mg po qd DoD Administrative Evaluation Services Inactive Condition Patient called and notified that medications will be ready for P/U at pharmacy this afternoon. Related with pt that Zocor will now be 2 Tabs of 20mg ea. due to 40mg tabs not stocked in pharmacy anymore. ASA chewable also are not stocked and he will be using the ASA 81mg Enteric Coated from now on. Pt verbalized his understanding of the above. DoD UPPER RESPIRATORY INFECTION Inactive Condition pt advised to s leda well hydrated and take his medication as directed. Pt advised to return to the clinic in one week if not better. Medications (Robitussin with codeine and Tessalon) ordered in [facility] 1. 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 Pt is aware of the risk of infection, bleeding, and scar. 0.5 cc with lidocaine and epinephrine infiltrated. Shave biopsy on right ala performed. Pt tolerated the procedure well. 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 DoD joint pain, localized in the shoulder Active Condition [facility] Diagnosis: ICD-10-CM H90.3 Sensorineural hearing loss, bilateral Active Diagnosis [facility] Diagnosis: ICD-10-CM I10 Essential (primary) hypertension Active Diagnosis [facility] Diagnosis: ICD-10-CM Z91.89 Oth personal risk factors, not elsewhere classified Active Diagnosis [facility] Diagnosis: ICD-10-CM H69.92 Unspecified Eustachian tube disorder, left ear Active Diagnosis [facility] Diagnosis: ICD-10-CM M54.31 Sciatica, right side Active Diagnosis [facility] Diagnosis: ICD-10-CM H68.012 Acute Eustachian salpingitis, left ear Active Diagnosis [facility] Diagnosis: ICD-10-CM H92.09 Otalgia, unspecified ear Active Diagnosis [facility] Diagnosis: ICD-10-CM M16.9 Osteoarthritis of hip, unspecified Active Diagnosis [facility] Diagnosis: ICD-10-CM Z13.5 Encounter for screening for eye and ear disorders Active Diagnosis [facility] Diagnosis: ICD-10-CM M54.50 Low back pain, unspecified Active Diagnosis [facility] Diagnosis: ICD-10-CM U07.1 COVID-[address] [facility] Diagnosis: ICD-10-CM E66.09 Other obesity due to excess calories Active Diagnosis [facility] Medications Combined list of outpatient medications from Department of Defense and Veterans Affairs facilities.Medications provided include 1) outpatient medications from the last 15 months, and 2) patient-reported medications. Medication Details Route Status Patient Instructions Prescription Expires Prescription Number Last Dispense Date Ordering Provider Order Date Order Qty Source ALBUTEROL SO4 90MCG/ACTUA T (CFC-F) INHL,ORAL,8 .5GM INHALE 2 PUFFS BY ORAL INHALATI ON FOUR TIMES A DAY RESPIR ATORY (INHAL ATION) ACTIVE [place] D 2021 [facility] ALFUZOSIN HCL 10MG TAB,SA TAKE ONE TABLET BY MOUTH ORAL ACTIVE ILSA JEFFRIES 2011 [facility] allopurinol 300 mg tablet 300 mg, Oral, Daily, # 90 EA, 3 total refill(s ), Hard Stop Oral (given by mouth) Complet ed 01/27/2024 4 2023 90.0 Ambulat ory Pharmac y allopurinol 300 mg tablet See Instruct ions, # 90 EA, 1 total refill(s ), Acute Complet ed 02/17/2023 3 2022 90.0 Ambulat ory Pharmac y allopurinol 300 mg tablet = 1 tab(s), Oral, Daily, # 90 EA, 3 total refill(s ), Hard Stop Oral (given by mouth) Ordered 12/27/2024 5 2024 90.0 Ambulat ory Pharmac y ALLOPURINOL 300MG TAB TAKE ONE TABLET BY MOUTH ORAL ACTIVE ILSA JEFFRIES 2011 [facility] ALLOPURINOL 300MG TAB TAKE ONE TABLET BY MOUTH ONCE A DAY ORAL ACTIVE [place] 2018 [facility] ASCORBIC ACID 500MG TAB TAKE ONE TABLET BY MOUTH ONCE A DAY ORAL ACTIVE ELAINA CAMACHO 2021 [facility] ASPIRIN 81MG TAB,EC TAKE ONE TABLET BY MOUTH ONCE A DAY ORAL ACTIVE [place] D 2018 [facility] aspirin EC 81 mg tablet 81 mg, Oral, Daily, # 90 EA, 3 total refill(s ), Hard Stop Oral (given by mouth) Complet ed 01/27/2024 4 2023 90.0 Ambulat ory Pharmac y aspirin EC 81 mg tablet See Instruct ions, # 90 EA, 1 total refill(s ), Acute Complet ed 02/17/2023 3 2022 90.0 Ambulat ory Pharmac y aspirin EC 81 mg tablet = 1 tab(s), Oral, Daily, # 90 EA, 3 total refill(s ), Hard Stop Oral (given by mouth) Ordered 12/27/2024 5 2024 90.0 Ambulat ory Pharmac y atorvastati n 40 mg tablet See Instruct ions, Oral, # 45 EA, 3 total refill(s ), Hard Stop Oral (given by mouth) Discont inued 09/07/2023 3 2023 45.0 Ambulat ory Pharmac y azelastine 137 mcg/inh nasal spray [30mL] See Instruct ions, # 30 mL, 3 total refill(s ), Hard Stop Ordered 12/27/2024 4 2023 30.0 Ambulat ory Pharmac y CHOLECALCIF LUCILLE 50MCG (2,000UNIT) TAB TAKE ONE TABLET BY MOUTH ONCE A DAY ORAL ACTIVE ELAINA CAMACHO 2021 [facility] CYANOCOBALA MIN (OTC) TAB TAKE 25 MCG BY MOUTH ONCE A DAY ORAL ACTIVE ELAINA CAMACHO 2021 [facility] DICLOFENAC NA 75MG TAB,EC TAKE ONE TABLET BY MOUTH EVERY MORNING AND EVENING ORAL ACTIVE TOMMIE FLOYD 2022 [facility] diclofenac sodium EC 75 mg tablet See Instruct ions, # 180 EA, 2 total refill(s ), Acute Complet ed 04/01/2023 3 2023 180.0 Ambulat ory Pharmac y diclofenac sodium EC 75 mg tablet 75 mg, Oral, BID, # 180 EA, 3 total refill(s ), Hard Stop Oral (given by mouth) Complet ed 01/27/2024 4 2023 180.0 Ambulat ory Pharmac y diclofenac sodium EC 75 mg tablet = 1 tab(s), Oral, BID, # 180 EA, 3 total refill(s ), Hard Stop Oral (given by mouth) Ordered 12/27/2024 5 2024 180.0 Ambulat ory Pharmac y DILTIAZEM (EQV-TIAZAC AB4) 120MG 24HR CAP TAKE 1 CAPSULE BY MOUTH ONCE A DAY ORAL ACTIVE GAMPA,AMU MANFRED [address] [facility] dilTIAZem ER 120 mg/24 hour capsule See Instruct ions, # 90 EA, 1 total refill(s ), Acute Complet ed 02/17/2023 3 2022 90.0 Ambulat ory Pharmac y dilTIAZem ER 120 mg/24 hour capsule 120 mg, Oral, Daily, # 90 EA, 3 total refill(s ), Hard Stop Oral (given by mouth) Complet ed 01/27/2024 4 2023 90.0 Ambulat ory Pharmac y dilTIAZem ER 120 mg/24 hour capsule = 1 cap(s), Oral, Daily, # 90 EA, 3 total refill(s ), Hard Stop Oral (given by mouth) Ordered 12/27/2024 5 2024 90.0 Ambulat ory Pharmac y FISH OIL 1000MG (500MG DHA/EPA) CAP,ORAL TAKE 2 CAPSULES BY MOUTH TWICE A DAY ORAL ACTIVE [place] D 2018 [facility] HYDROCHLORO THIAZIDE 25MG/TELMIS IMELDA 80MG TAB TAKE ONE TABLET BY MOUTH ONCE A DAY ORAL ACTIVE [place] D 2018 [facility] hydroCHLORO thiazide-te lmisartan 25 mg-80 mg tablet = 1 tab(s), Oral, Daily, # 90 EA, 3 total refill(s ), Hard Stop Oral (given by mouth) Ordered 12/27/2024 5 2024 90.0 Ambulat ory Pharmac y lidocaine 5% patch See Instruct ions, 0, # 90 EA, 3 total refill(s ), Hard Stop Ordered 12/27/2024 4 2023 90.0 Ambulat ory Pharmac y LISINOPRIL 10MG TAB TAKE ONE TABLET BY MOUTH EVERY DAY ORAL ACTIVE ILSA JEFFRIES 2011 [facility] methocarbam ol 500 mg tablet = 2 tab(s), Oral, BID, # 360 EA, 3 total refill(s ), Hard Stop Oral (given by mouth) Ordered 01/25/2025 5 2024 360.0 Ambulat ory Pharmac y methocarbam ol 500 mg tablet 500 mg, Oral, QID, # 360 EA, 3 total refill(s ), Hard Stop Oral (given by mouth) Complet ed 09/26/2023 3 2023 360.0 Ambulat ory Pharmac y methocarbam ol 500 mg tablet 500 mg, Oral, QID, # 360 EA, 3 total refill(s ), Hard Stop Oral (given by mouth) Discont inued 01/26/2024 4 2023 360.0 Ambulat ory Pharmac y METHOCARBAM OL 500MG TAB TAKE ONE TABLET BY MOUTH FOUR TIMES A DAY NEEDED ORAL ACTIVE TOMMIE FLOYD 2019 [facility] methylPREDN ISolone 4 mg tablet Dose Pack [21EA] See Instruct levon, # 21 EA, 0 total refill(s ), Hard Stop Complet ed 12/11/2023 4 2023 21.0 Ambulat ory Pharmac y METHYLPREDN ISOLONE 4MG TAB DOSEPAK,21 TAKE TABLETS BY MOUTH DIRECTED ORAL ACTIVE TAMANNA ARZOLA 2023 [facility] METOPROLOL SUCCINATE 100MG TAB,SA TAKE ONE-HALF TABLET BY MOUTH ONCE A DAY ORAL ACTIVE LENARDAMU MANFRED [address] [facility] METOPROLOL SUCCINATE 100MG TAB,SA TAKE ONE-HALF TABLET BY MOUTH ORAL ACTIVE ILSA JEFFRIES 2011 [facility] metoprolol succinate ER 100 mg/24 hour tablet See Instruct ions, # 90 EA, 1 total refill(s ), Acute Complet ed 02/17/2023 3 2022 90.0 Ambulat ory Pharmac y metoprolol succinate ER 50 mg/24 hour tablet 50 mg, Oral, Daily, # 90 EA, 3 total refill(s ), Hard Stop Oral (given by mouth) Complet ed 01/27/2024 4 2023 90.0 Ambulat ory Pharmac y metoprolol succinate ER 50 mg/24 hour tablet = 1 tab(s), Oral, Daily, # 90 EA, 3 total refill(s ), Hard Stop Oral (given by mouth) Ordered 12/27/2024 5 2024 90.0 Ambulat ory Pharmac y Micardis HCT 80 mg- 25 mg tablet See Instruct ions, # 90 EA, 2 total refill(s ), Acute Complet ed 02/17/2023 3 2022 90.0 Ambulat ory Pharmac y Micardis HCT 80 mg- 25 mg tablet See Instruct ions, Oral, Daily, # 90 EA, 3 total refill(s ), Hard Stop Oral (given by mouth) Discont inued 12/28/2023 4 2023 90.0 Ambulat ory Pharmac y POTASSIUM CHLORIDE 20MEQ TAB,SA (DISPERSIBL E) TAKE ONE TABLET BY MOUTH ONCE A DAY FOR HERVE [place] SUPPLEME NTATION TAKE WITH FOOD ORAL HOLD 01/25/2025 [id number] [place] 2023 90 [facility] POTASSIUM CHLORIDE 20MEQ TAB,SA (DISPERSIBL E) TAKE ONE TABLET BY MOUTH ONCE A DAY ORAL ACTIVE ELAINA CAMACHO 2021 [facility] pravastatin 40 mg tablet See Instruct ions, # 90 EA, 1 total refill(s ), Acute Complet ed 02/17/2023 3 2022 90.0 Ambulat ory Pharmac y rosuvastati n 10 mg tablet 10 mg, Oral, Daily, # 90 EA, 3 total refill(s ), Hard Stop Oral (given by mouth) Complet ed 12/15/2023 4 2023 90.0 Ambulat ory Pharmac y rosuvastati n 10 mg tablet = 1 tab(s), Oral, Daily, # 90 EA, 3 total refill(s ), Hard Stop Oral (given by mouth) Ordered 12/27/2024 5 2024 90.0 Ambulat ory Pharmac y ROSUVASTATI N CA 20MG TAB TAKE ONE-HALF TABLET BY MOUTH EVERY EVENING ORAL ACTIVE TOMMIE FLOYD 2022 [facility] sildenafil 50 mg oral tablet TAKE 1 TABLET BY MOUTH DAILY NEEDED FOR ERECTILE DYSFUNCT ION., # 10 EA, 3 total refill(s ), Acute Complet ed 10/27/2022 2 2022 10.0 Ambulat ory Pharmac y SIMVASTATIN 80MG TAB TAKE ONE-HALF TABLET BY MOUTH EVERY EVENING ORAL ACTIVE ILSA JEFFRIES 2011 [facility] ZINC 50MG TAB TAKE ONE TABLET BY MOUTH ONCE A DAY ORAL ACTIVE ELAINA CAMACHO 2021 [facility] Allergies, Adverse Reactions, Alerts Combined list of allergies from Department of Defense and Veterans Affairs facilities. It does not include entries that were removed or entered in error. Substance Category Reaction Severity Reaction type Status Date Reported Comments Source No Known Allergies Drug allergy (disorder) active 07/09/2007 [employer] Immunizations Combined list of available immunizations from the Department of Defense and Veterans Affairs facilities. Immunization Series Date Given Administered By Site Reaction Lot Number CVX Code Drug Geochemical Laboratory Technician Status Comments Source INFLUENZA, HIGH-DOSE, TRIVALENT, PF 2023 KATIE GRIFFITH RIGHT DELTO ID [id number] 135 complet [place], [facility] influenza virus vaccine, inactivated 2023 CARLOS CACERES 88 complet ed Result Comment: Located in [facility] [place] Ambulat ory Pharmac y INFLUENZA, HIGH-DOSE, QUADRIVALENT 2022 KATIE GRIFFITH RIGHT DELTO ID [id number] 197 complet ed [place] [facility] COVID-19 (MODERNA), MRNA, LNP-S, BIVALENT BOOSTER, PF, 50 MCG/0.5 ML OR 25MCG/0.25 ML DOSE 1 2021 229 complet ed MOD; [id number]; 3 [facility] INFLUENZA VACCINE, QUADRIVALENT, ADJUVANTED 2021 205 complet ed [facility] COVID-19 (PFIZER), MRNA, LNP-S, PF, 30 MCG/0.3 ML DOSE 1 2021 208 complet ed HISTORICA L INFORMATI ON - FROM OTHER REGISTRY, [facility] zoster vaccine, inactivated 2020 zzRig ht Arm [id number] [employer] complet ed zoster vaccine, inactivat ed 11/28/20 Given Ambulat ory Pharmac y zoster vaccine recombinant 1 2020 Unknown, Provider [id number] complet ed zoster vaccine recombina nt DoD zoster vaccine, inactivated 2020 zzRig ht Arm [id number] 187 [employer] complet ed zoster vaccine, inactivat ed 07/30/20 Given Ambulat ory Pharmac y zoster vaccine recombinant 1 2020 Unknown, Provider [id number] 187 [employer] (SK) complet ed zoster vaccine recombina nt DoD COVID-19 (MODERNA), MRNA, LNP-S, PF, 100 MCG/0.5 ML DOSE 2 2020 207 complet ed [facility] COVID Vaccine Moderna 2020 zzLef t Arm [id number] complet ed COVID Vaccine Moderna 05/10/20 Given Ambulat ory Pharmac y SARS-COV-2 (COVID-19) vaccine, mRNA, spike protein, LNP, preservative free, 100 mcg or 50 mcg dose 1 2020 Unknown, Provider [id number] 207 Moderna [employer] (MOD) complet ed SARS-COV- 2 (COVID-19 ) vaccine, mRNA, spike protein, LNP, preservat lydia free, 100 mcg or 50 mcg dose DoD COVID-19 (MODERNA), MRNA, LNP-S, PF, 100 MCG/0.5 ML DOSE 1 2020 207 complet ed [facility] COVID Vaccine Moderna 2020 zNarciso ht Arm [id number] 207 complet ed COVID Vaccine Moderna 04/11/20 Given Ambulat ory Pharmac y SARS-COV-2 (COVID-19) vaccine, mRNA, spike protein, LNP, preservative free, 100 mcg or 50 mcg dose 1 2020 Unknown, Provider [id number] 207 Moderna [employer] (MOD) complet ed SARS-COV- 2 (COVID-19 ) vaccine, mRNA, spike protein, LNP, preservat lydia free, 100 mcg or 50 mcg dose DoD INFLUENZA, UNSPECIFIED FORMULATION 2018 88 complet ed per [facility] N INFLUENZA, TRIVALENT, ADJUVANTED 2018 168 complet ed HISTORICA L INFORMATI ON - FROM OTHER REGISTRY, [facility] TDAP 2018 115 complet ed Left Deltoid [facility] tetanus, diphtheria, acellular pertu is 2018 CARLOS CACERES 115 complet ed tetanus, diphtheri a, acellular pertussis 12/02/18 Recorded Ambulat ory Pharmac y influenza, injectable, quadrivalent- pf 2017 [facility] [id number] [employer] ne complet ed influenza , injectabl e, quadrival ent-pf 03/12/18 Given Ambulat ory Pharmac y Influenza, injectable, quadrivalent, preservative free 1 2017 Unknown, Provider [id number] 150 Smithine (SKB) complet ed Influenza , injectabl e, quadrival ent, preservat lydia free DoD Influenza, inj, MDCK, quadrivalent- pf 2016 zNarciso ht Arm [id number] [employer] complet ed Influenza , inj, MDCK, quadrival ent-pf 03/06/17 Given Ambulat ory Pharmac y pneumococcal 13-valent conjugate (PCV13) 2016 Radha t Arm [id number] [employer] complet ed pneumococ rex 13-valent conjugate (PCV13) 03/06/17 Given Ambulat ory Pharmac y INFLUENZA, SEASONAL, INJECTABLE, PRESERVATIVE FREE 2016 140 complet ed HISTORICA L INFORMATI ON - FROM OTHER REGISTRY, [facility] pneumococcal conjugate vaccine, 13 valent 1 2016 Unknown, Provider [id number] [facility] complet ed pneumococ rex conjugate vaccine, 13 valent DoD Influenza, injectable, Madin Mercedes Canine Kidney, preservative free, quadrivalent 1 2016 Unknown, Provider [id number] 171 [employer] (SEQ) complet ed Influenza , injectabl e, Madin Narvon Canine Kidney, preservat lydia free, quadrival ent DoD PNEUMOCOCCAL CONJUGATE PCV 13 2 2016 133 complet ed HISTORICA L INFORMATI ON - FROM OTHER REGISTRY, [facility] pneumococcal polysaccharid e, 23 valent [facility] [id number] 33 Merck & Company Inc complet ed pneumococ rex polysacch aride, 23 valent 03/15/15 Given Ambulat ory Pharmac y influenza, injectable, quadrivalent- pf 2014 zzJl Arm [id number] 150 Glax[employer]SmithK[employer] ne complet ed influenza , injectabl e, quadrival ent-pf 03/15/15 Given Ambulat ory Pharmac y INFLUENZA, SEASONAL, INJECTABLE, PRESERVATIVE FREE 8 2014 140 complet ed HISTORICA L INFORMATI ON - FROM OTHER REGISTRY, [facility] PNEUMOCOCCAL POLYSACCHARID E [id number] 1 2014 33 complet ed HISTORICA L INFORMATI ON - FROM OTHER REGISTRY, [facility] pneumococcal polysaccharid e vaccine, 23 valent 1 2014 Unknown, Provider [id number] Merck (MSD) complet ed pneumococ rex polysacch aride vaccine, 23 valent DoD Influenza, injectable, quadrivalent, preservative free 1 2014 Unknown, Provider [id number] 150 [facility] complet ed Influenza , injectabl e, quadrival ent, preservat lydia free DoD influenza, seasonal, injectable-pf 2013 zzRig Arm [id number] 140 Novartis Pharmaceutica ls complet ed influenza , seasonal, injectabl e-pf 01/18/14 Given Ambulat ory Pharmac y INFLUENZA, SEASONAL, INJECTABLE, PRESERVATIVE FREE 7 2013 140 complet ed HISTORICA L INFORMATI ON - FROM OTHER REGISTRY, [facility] Influenza, seasonal, injectable, preservative free 1 2013 Unknown, Provider [id number] 140 Novartis Pharmaceutica l Leonora. (NOV) complet ed Influenza , seasonal, injectabl e, preservat lydia free DoD influenza, seasonal, injectable-pf 2011 zzRig Arm [id number] 140 sanofi pasteur complet ed influenza , seasonal, injectabl e-pf 01/15/12 Given Ambulat ory Pharmac y INFLUENZA, SEASONAL, INJECTABLE, PRESERVATIVE FREE 6 2011 140 complet ed HISTORICA L INFORMATI ON - FROM OTHER REGISTRY, [facility] Influenza, seasonal, injectable, preservative free 1 2011 Unknown, Provider [id number] Sanofi Pasteur (PMC) complet ed Influenza , seasonal, injectabl e, preservat lydia free DoD INFLUENZA, SEASONAL, INJECTABLE, PRESERVATIVE FREE 2011 140 complet ed [facility] influenza virus vaccine,split 2009 zzLef t Arm [id number] CSL Behring complet ed influenza virus vaccine,s plit 01/25/10 Given Ambulat ory Pharmac y influenza virus vaccine, split virus (incl. purified surface antigen)-reti red CODE 1 2009 Unknown, Provider [id number] 15 [employer] (CSL) complet ed influenza virus vaccine, split virus (incl. purified surface antigen)- retired CODE DoD INFLUENZA, SEASONAL, INJECTABLE, PRESERVATIVE FREE 5 2009 140 complet ed HISTORICA L INFORMATI ON - FROM OTHER REGISTRY, [facility] zoster vaccine live 2009 zzLef t Arm [id number] 121 [employer] complet ed zoster vaccine live 05/01/09 Given Ambulat ory Pharmac y ZOSTER LIVE 1 2009 121 complet ed HISTORICA L INFORMATI ON - FROM OTHER REGISTRY, [facility] zoster vaccine, live 1 2009 Unknown, Provider [id number] 121 Merck (MSD) complet ed zoster vaccine, live DoD influenza virus vaccine,split 2008 [id number]([id number] 15 CSL Behring complet ed influenza virus vaccine,s plit 12/15/08 Given Ambulat ory Pharmac y tetanus, diphtheria, acellular pertu is 2008 [id number] sanofi pasteur complet ed tetanus, diphtheri a, acellular pertussis 12/15/08 Given Ambulat ory Pharmac y INFLUENZA, SEASONAL, INJECTABLE, PRESERVATIVE FREE 07 [id number]|2024-08-15 19:11:00|2024-08-15 19:11:00|XMS_ITS|BKG DAEMON|External Medical Summaries|[id number]|" Encounter Summary Created on: August 15, 2024 Ankit Ashley : 1950 Sex: Male Author Organization [facility] Address [address] [place] [address] Care Team Providers Care Blood Donor Recruiter Supervisor Name Role Phone Caden Burch MD Primary Care Provider Caden Burch MD Unavailable [phone] None, Provider Primary Care Provider UnavailChrystal Ahn MD Primary Care Provider [phone] Encounter Details Date Type Department Care Team (Latest Contact Info) Description 12/22/2017 Abstract [facility] Medical Group Wyatt Toscano MD Social History Tobacco Use Types Packs/Day Years Used Date Smoking Tobacco: Never Assessed Sex and Gender Information Value Date Recorded Sex Assigned at Not on file Legal Sex Male 8:23 PM CDT Gender Identity Male 05/20/2021 9:30 AM HIM MANAGER Sexual Orientation Straight 05/20/2021 9: 30 AM HIM MANAGER documented as of this encounter Plan of Treatment Not on file documented as of this encounter Visit Diagnoses Not on filedocumented in this encounter Additional Health Concerns Infection Onset Date Last Indicated Resolved Time COVID-19 Rule Out 03/22/2021 03/22/2021 03/23/2021 11:00 AM HIM MANAGER COVID-19 Rule Out 10/22/2023 10/22/2023 10/22/2023 11:02 AM CDT COVID-19 Confirmed 10/22/2023 10/22/2023 12:32 AM CDT documented as of this encounter Care Teams Blood Donor Recruiter Supervisor Relationship Specialty Start Date End Date Caden Burch MD [address] [address] PCP - General 10/08/16 11/23/18 Caden Burch MD [address] [address] PCP - Med Group - MSSP Attributed Provider 03/30/15 03/29/22 None, MD Jose R PCP - General 11/24/18 09/09/20 Chrystal Floyd MD [facility] office [address] [place] [id number] PCP - General FAMILY PRACTICE 09/10/20 documented as of this encounter "
[2024-08-15 19:15] VITALS: BP 156/83; PULSE 60; RESP 17; TEMP 36.3; O2SAT 94
--- OUTSIDE RECORDS SUMMARY | 2024-08-15 21:39 | XMS_ITS | Continuity of Care Document ---
Author Name [facility] Organization [facility] Care Team Providers Care Color Maker Dyer Name Role Phone [facility] Unavailable Unavailable Problems Combined list of problems from Department of Defense and Veterans Affairs facilities. It does not include entries that were removed or entered in error. 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 DoD Outpatient Physician Consultation Active Condition DoD ORGANIC IMPOTENCE Active Condition DoD ATYPICAL CHEST PAIN Inactive Condition D oD pain in the hands Active Condition DoD foot pain (soft tissue) Active Condition DoD Glaucoma Screening Inactive Condition Do D visit for: issue repeat prescription for medication Inactive Condition DoD Laboratory Studies Inactive Condition Do D TINNITUS SUBJECTIVE Active Condition Do D SENSORINEURAL HEARING LOSS ASYMMETRICAL Active Condition DoD HEARING LOSS Active Condition DoD GOUT Active Condition DoD COMMON COLD Inactive [...] ---if poor results will send to ENT DoD dizziness Active Condition DoD ear symptoms Active Condition DoD DERMATOLOGY - SKIN CONDITION Active Condition DoD SKIN CANCER BASAL CELL CARCINOMA Active Condition Informed cons ent obtained. Pt is aware of the risk of infection, bleeding, and scar. 0.5 cc with lidocaine and epinephrine infiltrated. Shave biopsy on right ala performed. Pt tolerated the procedure well. 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 COVID-19 Active Condition [facility] Elevated Prostate Specific antigen [psa] (ICD-9-CM 790.93) Active Condition [facility] Essential Hypertension (ICD-9-CM 401.9) Active Condition [facility] Gout * (ICD-9-CM 274.9) Active Condition [facility] Heel: arthralgia (ICD-9-CM 719.48) Active Condition JUAN RAMON GE [facility] HTN - Hypertension Active Condition [facility] Hyperlipidemia * (ICD-9-CM 272.4) Active Condition MARILYNN E [facility] Hypertensive retinopathy (ICD-9-CM 362.11) Active Condition [facility] Hypertriglyceridemia * (ICD-9-CM 272.1) Active Condition MARILYNN AGE [facility] Hypertrophy (Benign) of Prostate without Urinary obstruction and other lower Uri Active Condition KIRILL RAGE [facility] Obesity Active Condition [facility] Sensorineural Hearing Loss * (ICD-9-CM 389.10) Active Condition [facility] Systemic arterial hypertension Active Condition [facility] Diagnosis: ICD-10-CM H90.3 Sensorineural hearing loss, bilateral Active Diagnosis [facility] Diagnosis: ICD-10-CM I10 Essential (primary) hypertension Active Diagnosis [facility] Diagnosis: ICD-10-CM Z91.89 Oth personal risk factors, not elsewhere classified Active Diagnosis [facility] Diagnosis: ICD-10-CM H69.92 Unspecified Eustachian tube disorder, left ear Active Diagnosis [facility] Diagnosis: ICD-10-CM M54.31 Sciatica, right side Active Diagnosis [facility] Diagnosis: ICD-10-CM H68.012 Acute Eustachian salpingitis, left ear Active Diagnosis [facility] Diagnosis: ICD-10-CM H92.09 Otalgia, unspecified ear Active Diagnosis [facility] Diagnosis: ICD-10-CM M16.9 Osteoarthritis of hip, unspecified Active Diagnosis [facility] Diagnosis: ICD-10-CM Z13.5 Encounter for screening for eye and ear disorders Active Diagnosis [facility] Diagnosis: ICD-10-CM M54.50 Low back pain, unspecified Active Diagnosis [facility] Diagnosis: ICD-10-CM U07.1 COVID-[address] [facility] Diagnosis: ICD-10-CM E66.09 Other obesity due to excess calories Active Diagnosis [facility] Medications Combined list of outpatient medications [...] (INHAL ATION) ACTIVE [place] D 2021 [facility] ALFUZOSIN HCL 10MG TAB,SA TAKE ONE TABLET BY MOUTH ORAL ACTIVE ILSA JEFFRIES 2011 [facility] allopurinol 300 mg tablet 300 mg, [...] BY MOUTH ORAL ACTIVE ILSA JEFFRIES 2011 [facility] ALLOPURINOL 300MG TAB TAKE ONE TABLET BY MOUTH ONCE A DAY ORAL ACTIVE [place] 2018 [facility] ASCORBIC ACID 500MG TAB TAKE ONE TABLET BY MOUTH ONCE A DAY ORAL ACTIVE ELAINA CAMACHO 2021 [facility] ASPIRIN 81MG TAB,EC TAKE ONE TABLET BY MOUTH ONCE A DAY ORAL ACTIVE [place] 2018 [facility] aspirin EC 81 mg tablet 81 mg, [...] A DAY ORAL ACTIVE ELAINA CAMACHO 2021 [facility] CYANOCOBALA MIN (OTC) TAB TAKE 25 MCG BY MOUTH ONCE A DAY ORAL ACTIVE ELAINA CAMACHO 2021 [facility] DICLOFENAC NA 75MG TAB,EC TAKE ONE TABLET BY MOUTH EVERY MORNING AND EVENING ORAL ACTIVE TOMMIE FLOYD 2022 [facility] diclofenac sodium EC 75 mg tablet See [...] A DAY ORAL ACTIVE GAMPA,AMU MANFRED 2018 [facility] dilTIAZem ER 120 mg/24 hour [...] DAY ORAL ACTIVE [place] [address] [place] 2018 [facility] HYDROCHLORO THIAZIDE 25MG/TELMIS IMELDA 80MG TAB TAKE ONE TABLET BY MOUTH ONCE A DAY ORAL ACTIVE [place] D 2018 [facility] hydroCHLORO thiazide-te lmisartan 25 mg-80 mg tablet [...] EVERY DAY ORAL ACTIVE ILSA JEFFRIES 2011 [facility] methocarbam ol 500 mg tablet = [...] DAY NEEDED ORAL ACTIVE TOMMIE FLOYD 2019 [facility] methylPREDN ISolone 4 mg tablet Dose Pack [21EA] See Instruct levon, # 21 EA, 0 total refill(s ), Hard Stop Complet ed 12/11/2023 4 2023 21.0 Ambulat ory Pharmac y METHYLPREDN ISOLONE 4MG TAB DOSEPAK,21 TAKE TABLETS BY MOUTH DIRECTED ORAL ACTIVE TAMANNA ARZOLA 2023 [facility] METOPROLOL SUCCINATE 100MG TAB,SA TAKE ONE-HALF TABLET BY MOUTH ONCE A DAY ORAL ACTIVE LENARDAMU MANFRED 2018 [facility] METOPROLOL SUCCINATE 100MG TAB,SA TAKE ONE-HALF TABLET BY MOUTH ORAL ACTIVE ILSA JEFFRIES 2011 [facility] metoprolol succinate ER 100 mg/24 hour [...] NTATION TAKE WITH FOOD ORAL HOLD 01/25/2025 [id number] [place] 2023 90 [facility] POTASSIUM CHLORIDE 20MEQ TAB,SA (DISPERSIBL E) TAKE ONE TABLET BY MOUTH ONCE A DAY ORAL ACTIVE ELAINA CAMACHO 2021 [facility] pravastatin 40 mg tablet See Instruct ions, [...] EVERY EVENING ORAL ACTIVE TOMMIE FLOYD 2022 [facility] sildenafil 50 mg oral tablet TAKE 1 TABLET BY MOUTH DAILY NEEDED FOR ERECTILE DYSFUNCT ION., # 10 EA, 3 total refill(s ), Acute Complet ed 10/27/2022 2 2022 10.0 Ambulat ory Pharmac y SIMVASTATIN 80MG TAB TAKE ONE-HALF TABLET BY MOUTH EVERY EVENING ORAL ACTIVE ILSA JEFFRIES 2011 [facility] ZINC 50MG TAB TAKE ONE TABLET BY MOUTH ONCE A DAY ORAL ACTIVE ELAINA CAMACHO 2021 [facility] Allergies, Adverse Reactions, Alerts Combined list of [...] Site Reaction Lot Number CVX Code Drug Rod Hanger Status Comments Source INFLUENZA, HIGH-DOSE, TRIVALENT, PF 2023 KATIE GRIFFITH RIGHT DELTO ID [id number] 135 complet [place], [facility] influenza virus vaccine, inactivated 2023 CARLOS CACERES 88 complet ed Result Comment: Located in [facility] from [place] records Ambulat ory Pharmac y INFLUENZA, HIGH-DOSE, QUADRIVALENT 2022 KATIE GRIFFITH RIGHT DELTO ID [id number] 197 complet ed [place] [facility] COVID-19 (MODERNA), MRNA, LNP-S, BIVALENT BOOSTER, PF, 50 MCG/0.5 ML OR 25MCG/0.25 ML DOSE 1 2021 229 complet ed MOD; [id number]; 3 [facility] INFLUENZA VACCINE, QUADRIVALENT, ADJUVANTED 2021 205 complet ed [facility] COVID-19 (PFIZER), MRNA, LNP-S, PF, 30 MCG/0.3 ML DOSE 1 2021 208 complet ed HISTORICA L INFORMATI ON - FROM OTHER REGISTRY, [facility] zoster vaccine, inactivated 2020 zzRig ht Arm [id number] GlaxoSmithKli ne complet ed zoster vaccine, inactivat ed 11/28/20 Given Ambulat ory Pharmac y zoster vaccine recombinant 1 2020 Unknown, Provider [id number] [facility] complet ed zoster vaccine recombina nt DoD zoster vaccine, inactivated 2020 zzRig ht Arm [id number] 187 GlaxoSmithKli ne complet ed zoster vaccine, inactivat ed 07/30/20 Given Ambulat ory Pharmac y zoster vaccine recombinant 1 2020 Unknown, Provider [id number] 187 SmithKline (SK) complet ed zoster vaccine recombina nt DoD COVID-19 (MODERNA), MRNA, LNP-S, PF, 100 MCG/0.5 ML DOSE 2 2020 207 complet ed [facility] COVID Vaccine Moderna 2020 zzLef t Arm [id number] complet ed COVID Vaccine Moderna 05/10/20 Given Ambulat ory Pharmac y SARS-COV-2 (COVID-19) vaccine, mRNA, spike protein, LNP, preservative free, 100 mcg or 50 mcg dose 1 2020 Unknown, Provider [id number] 207 Moderna [employer] (MOD) complet ed SARS-COV- 2 (COVID-19 ) vaccine, mRNA, spike protein, LNP, preservat lydia free, 100 mcg or 50 mcg dose DoD COVID-19 (MODERNA), MRNA, LNP-S, PF, 100 MCG/0.5 ML DOSE 1 2020 207 complet ed [facility] COVID Vaccine Moderna 2020 zNarciso ht Arm [id number] 207 complet ed COVID Vaccine Moderna 04/11/20 Given Ambulat ory Pharmac y SARS-COV-2 (COVID-19) vaccine, mRNA, spike protein, LNP, preservative free, 100 mcg or 50 mcg dose 1 2020 Unknown, Provider [id number] 207 Moderna [employer] (MOD) complet ed SARS-COV- 2 (COVID-19 ) vaccine, mRNA, spike protein, LNP, preservat lydia free, 100 mcg or 50 mcg dose DoD INFLUENZA, UNSPECIFIED FORMULATION 2018 88 complet ed per [facility] N INFLUENZA, TRIVALENT, ADJUVANTED 2018 168 complet ed HISTORICA L INFORMATI ON - FROM OTHER REGISTRY, [facility] TD[facility] 2018 115 complet ed Left Deltoid [facility] tetanus, diphtheria, acellular pertu is 2018 CARLOS CACERES 115 complet ed tetanus, diphtheri a, acellular pertussis 12/02/18 Recorded Ambulat ory Pharmac y influenza, injectable, quadrivalent- pf 2017 [facility] Arm [id number] 150 GlaxoSmithKli ne complet ed influenza , injectabl e, quadrival ent-pf 03/12/18 Given Ambulat ory Pharmac y Influenza, injectable, quadrivalent, preservative free 1 2017 Unknown, Provider [id number] 150 Smithine (SKB) complet ed Influenza , injectabl e, quadrival ent, preservat lydia free DoD Influenza, inj, MDCK, quadrivalent- pf 2016 zNarciso ht Arm [id number] Seqirus complet ed Influenza , inj, MDCK, quadrival ent-pf 03/06/17 Given Ambulat ory Pharmac y pneumococcal 13-valent conjugate (PCV13) 2016 Radha t Arm [id number] [employer] complet ed pneumococ rex 13-valent conjugate (PCV13) 03/06/17 Given Ambulat ory Pharmac y pneumococcal conjugate vaccine, 13 valent 1 2016 Unknown, Provider [id number] complet ed pneumococ rex conjugate vaccine, 13 valent DoD Influenza, injectable, Madin Smoot Canine Kidney, preservative free, quadrivalent 1 2016 Unknown, Provider [id number] 171 Seqirus (SEQ) complet ed Influenza , injectabl e, Madin Mercedes Canine Kidney, preservat lydia free, quadrival ent DoD INFLUENZA, SEASONAL, INJECTABLE, PRESERVATIVE FREE 2016 140 complet ed HISTORICA L INFORMATI ON - FROM OTHER REGISTRY, [facility] PNEUMOCOCCAL CONJUGATE PCV 13 2 2016 133 complet ed HISTORICA L INFORMATI ON - FROM OTHER REGISTRY, [facility] pneumococcal polysaccharid e, 23 valent [facility] [id number] Merck & Company Inc complet ed pneumococ rex polysacch aride, 23 valent 03/15/15 Given Ambulat ory Pharmac y influenza, injectable, quadrivalent- pf [facility] [id number] 150 GlaxoSmithKli ne complet ed influenza , injectabl e, quadrival ent-pf 03/15/15 Given Ambulat ory Pharmac y pneumococcal polysaccharid e vaccine, 23 valent 1 2014 Unknown, Provider [id number] Merck (MSD) complet ed pneumococ rex polysacch aride vaccine, 23 valent DoD Influenza, injectable, quadrivalent, preservative free 1 2014 Unknown, Provider [id number] 150 [employer] (SKB) complet ed Influenza , injectabl e, quadrival ent, preservat lydia free DoD INFLUENZA, SEASONAL, INJECTABLE, PRESERVATIVE FREE 8 2014 140 complet ed HISTORICA L INFORMATI ON - FROM OTHER REGISTRY, [facility] PNEUMOCOCCAL POLYSACCHARID E PPV23 1 2014 33 complet ed HISTORICA L INFORMATI ON - FROM OTHER REGISTRY, [facility] influenza, seasonal, injectable-pf 2013 zzRig ht Arm [id number] 140 Novartis Pharmaceutica ls complet ed influenza , seasonal, injectabl e-pf 01/18/14 Given Ambulat ory Pharmac y Influenza, seasonal, injectable, preservative free 1 2013 Unknown, Provider [id number] 140 Novartis Pharmaceutica l Leonora. (NOV) complet ed Influenza , seasonal, injectabl e, preservat lydia free DoD INFLUENZA, SEASONAL, INJECTABLE, PRESERVATIVE FREE 7 2013 140 complet ed HISTORICA L INFORMATI ON - FROM OTHER REGISTRY, [facility] influenza, seasonal, injectable-pf 2011 zzRig ht Arm [id number] 140 sanofi pasteur complet ed influenza , seasonal, injectabl e-pf 01/15/12 Given Ambulat ory Pharmac y Influenza, seasonal, injectable, preservative free 1 2011 Unknown, Provider [id number] Sanofi Pasteur ([facility]) complet ed Influenza , seasonal, injectabl e, preservat lydia free DoD INFLUENZA, SEASONAL, INJECTABLE, PRESERVATIVE FREE 6 2011 140 complet ed HISTORICA L INFORMATI ON - FROM OTHER REGISTRY, [facility] INFLUENZA, SEASONAL, INJECTABLE, PRESERVATIVE FREE 2011 140 complet ed [facility] influenza virus vaccine,split 2009 zzLef t Arm [id number] 15 CSL Behring complet ed influenza virus vaccine,s plit 01/25/10 Given Ambulat ory Pharmac y influenza virus vaccine, split virus (incl. purified surface antigen)-reti red CODE 1 2009 Unknown, Provider [id number] 15 [employer] (CSL) complet ed influenza virus vaccine, split virus (incl. purified surface antigen)- retired CODE DoD INFLUENZA, SEASONAL, INJECTABLE, PRESERVATIVE FREE 5 2009 140 complet ed HISTORICA L INFORMATI ON - FROM OTHER REGISTRY, [facility] zoster vaccine live 2009 zzLef t Arm [id number] 121 [employer] Inc complet ed zoster vaccine live 05/01/09 Given Ambulat ory Pharmac y zoster vaccine, live 1 2009 Unknown, Provider [id number] 121 Merck (MSD) complet ed zoster vaccine, live DoD ZOSTER LIVE 1 2009 121 complet ed HISTORICA L INFORMATI ON - FROM OTHER REGISTRY, [facility] influenza virus vaccine,split 2008 [id number] 1A(18+) 15 CSL Behring complet ed influenza virus vaccine,s plit 12/15/08 Given Ambulat ory Pharmac y tetanus, diphtheria, acellular pertu is 2008 [id number] 115 sanofi pasteur complet ed tetanus, diphtheri a, acellular pertussis 12/15/08 Given Ambulat ory Pharmac y influenza virus vaccine, split virus (incl. purified surface antigen)-reti red CODE [id number]|2024-08-15 21:39:00|2024-08-15 21:38:00|XMS_ITS|BKG DAEMON|External Medical Summaries|[id number]|" Encounter Summary Created on: August 15, 2024 Ankit Ashley : 1950 Sex: Male Author Organization [facility] Address [address] [place] [address] Care Team Providers Care Color Maker Dyer Name Role Phone Caden Burch MD Primary Care Provider Caden Burch MD Unavailable [phone] None, Provider Primary Care Provider Unavaila Chrystal Alexander MD Primary Care Provider [phone] Encounter Details Date Type Department Care Team (Latest Contact Info) Description 12/22/2017 Abstract [facility] Medical Group , Wyatt Loaiza MD Social History Tobacco Use Types Packs/Day Years Used Date Smoking Tobacco: Never Assessed Sex and Gender Information Value Date Recorded Sex Assigned at Not on file Legal Sex Male 8:23 PM CDT Gender Identity Male 05/20/2021 9:30 AM SATELLITE TELEVISION INSTALLER Sexual Orientation Straight 05/20/2021 9: 30 AM SATELLITE TELEVISION INSTALLER documented as of this encounter Plan of Treatment Not on file documented as of this encounter Visit Diagnoses Not on filedocumented in this encounter Additional Health Concerns Infection Onset Date Last Indicated Resolved Time COVID-19 Rule Out 03/22/2021 03/22/2021 03/23/2021 11:00 AM SATELLITE TELEVISION INSTALLER COVID-19 Rule Out 10/22/2023 10/22/2023 10/22/2023 11:02 AM CDT COVID-19 Confirmed 10/22/2023 10/22/2023 12:32 AM CDT documented as of this encounter Care Teams Color Maker Dyer Relationship Specialty Start Date End Date Caden Burch MD [address] [address] PCP - General 10/08/16 11/23/18 Caden Burch MD [address] [address] PCP - Med Group - MSSP Attributed Provider 03/30/15 03/29/22 None, MD Jose R PCP - General 11/24/18 09/09/20 Chrystal Floyd MD [facility] office [address] [place], [place] [id number] PCP - General FAMILY PRACTICE 09/10/20 documented as of this encounter "
--- OUTSIDE RECORDS SUMMARY | 2024-08-15 21:39 | XMS_ITS | Encounter Summary ---
Author Organization [facility] Address [address] [place] [address] Care Team Providers Care Adjustment Clerk Name Role Phone Caden Burch MD Unavailable [phone] Chrystal Clark MD Primary Care Provider [phone] Encounter Details Date Type Department Care Team (Latest Contact Info) Description 05/08/2021 Leaders2020t Message Enc [facility] Medical Group Multispecialty Care - [facility] [address] [place] [address] Humberto Cevallos MD [address] [place] [address] JULIUS KEATING [id number] Laser Vaporization of the Prostate Social History [...] CDT Gender Identity Male 05/20/2021 9:30 AM CO DIRECTOR Sexual Orientation Straight 05/20/2021 9: 30 AM CO DIRECTOR COVID-19 Exposure Response Date Recorded In the last 10 days, have mariama u been in contact with someone who was confirmed or suspected to have Coronavirus/COVID-19? No / Unsure 05/06/2021 9:21 AM CO DIRECTOR documented as of this encounter Progress Notes * Gabriela Martinez MA - 05/09/2021 12:44 PM CSTSummary: Questions Are you able to give him a call or I can if you let me know. DIRECTOR documented in this encounter Plan of Treatment Not on file documented as of this encounter Visit Diagnoses Not on filedocumented in this encounter Additional Health Concerns Infection Onset Date Last Indicated Resolved Time COVID-19 Rule Out 10/22/2023 10/22/2023 10/22/2023 11:02 AM CDT COVID-19 Confirmed 10/22/2023 10/22/2023 12:32 AM CDT Assessment Noted Time PHQ-9 Depression Total Score: 0 04/24/19 22 8:26 AM CO DIRECTOR documented as of this encounter Care Teams Adjustment Clerk Relationship Specialty Start Date End Date Caden Burch MD [address] [facility] [address] [place] [address] PCP - Med Group - MSSP Attributed Provider 03/30/15 03/29/22 Chrystal Clark MD [facility] office [address] [place] [address] PCP - General FAMILY PRACTICE 09/10/20 documented as of this encounter
--- OUTSIDE RECORDS SUMMARY | 2024-08-15 21:39 | XMS_ITS | Clinical Summary ---
Author Organization [facility] Address [address] [place] [address] Care Team Providers Care Supervisor Special Effects Name Role Phone Chrystal Clark MD Primary Care Provider [phone] Allergies No known active allergies Medications allopurinol [...] free 07/06/1989 Tdap (Generic) 12/15/2008 Zoster (Zostavax) 94962 Unt/0.65Ml 05/01/2009 Family History Medical History Relation [...] CDT Gender Identity Male 05/20/2021 9:30 AM PERIOPERATIVE TECH Sexual Orientation Straight 05/20/2021 9: 30 AM PERIOPERATIVE TECH Last Filed Vital Signs Vital Sign Reading [...] Diagnosis Comments COLONOSCOPY Routine 03/30/2010 12:00 AM PERIOPERATIVE TECH from Last 3 Months or Most Recently Relevant to Health Maintenance Results * Colonoscopy (03/30/2010 12:00 AM PERIOPERATIVE TECH) 03/30/2010 03/30/2010 Narrative TOUCHWORKS TO EPIC CONVERSION - 12/04/2017 1:52 PM CDT normal Procedure Note Wyatt Piedra MD - 07/13/2018 normal us Generic Conversion Md [facility] PROCEDURE ORDERABLES Final Result TOUCHWORKS TO EPIC CONVERSION from Last 3 Months or Most Recently Relevant to Health Maintenance Insurance [facility] [employer]ET[employer] MEDICARE [facility] Advance Directives * Full Code (Latest Code Status on File) Date Activated Date Inactivated Comments 05/21/2021 12:29 PM 05/22/2021 5:42 PM Care Teams Supervisor Special Effects Relationship Specialty Start Date End Date Chrystal Clark MD [facility] office [address] [place] [id number] PCP - General FAMILY PRACTICE 09/10/20
[2024-08-15] MEDS: TETANUS,DIPHTHERIA,AC PERTUSSIS ADULT (0.5 ML) BOOSTRIX IM (22:20)
--- NOTE | 2024-08-15 22:37 | ED_ITS ---
HPI - Wound/Laceration General Chief Complaint: Wound/Laceration Stated Complaint: Laceration L thumb with tablesaw Time Seen by Provider: 08/15/24 21:24 Source: patient Mode of arrival: ambulatory Limitations: no limitations History of Present Illness HPI narrative: Patient is a 73-year-old male who presents the ED with report of a laceration to his left thumb. Patient reports he was using a table fall when he sustained an avulsion injury to his left thumb finger pad. No nail involvement. No other injuries. Denies numbness. Tetanus unknown. Related Data Home Medications Medication Instructions Recorded Confirmed Last Taken Type allopurinol 300 mg tablet 300 mg PO DAILY 11/07/22 11/07/22 Unknown History aspirin 81 mg tablet,delayed 81 mg PO DAILY 11/07/22 11/07/22 Unknown History release diclofenac sodium 75 mg 75 mg PO DAILY 11/07/22 11/07/22 Unknown History tablet,delayed release diltiazem HCl 120 mg capsule,24 120 mg PO DAILY 11/07/22 11/07/22 Unknown History hr,extended release (Tiazac) methocarbamol 500 mg tablet 500 mg PO PRN PRN Muscle Pain 11/07/22 11/07/22 Unknown History metoprolol succinate 100 mg 100 mg PO DAILY 11/07/22 11/07/22 Unknown History tablet,extended release 24 hr potassium chloride 20 mEq 20 meq PO DAILY 11/07/22 11/07/22 Unknown History tablet,extended release(part/cryst) pravastatin 40 mg tablet 40 mg PO DAILY 11/07/22 11/07/22 Unknown History telmisartan 80 1 tablet PO DAILY 11/07/22 11/07/22 Unknown History mg-hydrochlorothiazide 25 mg tablet (Micardis HCT) Allergies Allergy/AdvReac Type Severity Reaction Status Date / Time No Known Allergies Allergy Verified 08/15/24 19:09 Review of Systems Review of Systems: All systems reviewed & are unremarkable except as noted in HPI. All systems reviewed & are unremarkable except as noted in HPI and below PMFSH Past Medical History Medical History Arthritis High cholesterol History of high blood pressure Exam Narrative: GENERAL: Ederly but well appearing, well-nourished, non-toxic, in no acute distress. HEAD: Normocephalic, atraumatic. RESPIRATORY: Airway patent, respirations nonlabored. CARDIOVASCULAR: Regular rate and rhythm. Radial pulses intact. MUSCULOSKELETAL: Moves all extremities. No gross deformities. SKIN: Warm, dry, normal color. Jagged irregular skin avulsion to majority of L thumb finger pad. Small areas of active bleeding. Sensation intact. NEURO: A&O X3. Speech clear. PSYCHIATRIC: Appropriate mood and affect. Normal interaction. Course Vital Signs Vital signs: Vital Signs Temperature 97.4 F L 08/15/24 19:15 Pulse Rate 60 08/15/24 19:15 Respiratory Rate 17 08/15/24 19:15 Blood Pressure 156/83 H 08/15/24 19:15 Pulse Oximetry 94 08/15/24 19:15 Oxygen Delivery Room Air 08/15/24 19:15 Temperature 97.4 F L 08/15/24 19:15 Pulse Rate 62 08/15/24 22:50 Respiratory Rate 15 08/15/24 22:50 Blood Pressure 156/83 H 08/15/24 19:15 Pulse Oximetry 95 08/15/24 22:50 Oxygen Delivery Room Air 08/15/24 19:15 Procedures Laceration Laceration 1: Date: 08/15/24 Time: 22:37 Site: hand Side (If applicable): left (thumb finger pad) Size (cm): 1 Description: irregular Depth: simple, single layer Local Anesthetic: none Pre-repair: wound explored, irrigated and irrigated extensively ====== Skin Level ====== Skin layer closed with: other (surgicell) ====== Subcutaneous Layer ====== ====== Muscle Layer ====== ====== Tendon Layer ====== MDM - Wound/Laceration MDM Narrative Medical decision making narrative: Neurovascularly intact. Laceration repaired with Surgicel. Bandaged. Tetanus updated. Patient given wound care instructions and reasons to return. Discharged in stable condition. Medical Records Attestation: I reviewed the patient's medical records. Discharge Plan Discharge Clinical Impression: Avulsion of skin of finger Patient Disposition: Home Condition: Stable Instructions: Antibiotic Form, Skin Avulsion (ED) Additional Instructions: Allow Surgicel to fall off on its own. Do not attempt to manipulate this. Recommend changing the gauze bandaging every day. Follow-up with your primary care doctor for further evaluation if needed. Return to the ED if you experience recurrent injury, severe bleeding, severe pain, fevers, redness surrounding wound or streaking up or down arm, or any other symptoms of concern. Patient Language: Ukrainian Prescriptions: No Action methocarbamol 500 mg tablet 500 mg PO PRN PRN (Reason: Muscle Pain) pravastatin 40 mg tablet 40 mg PO DAILY metoprolol succinate 100 mg tablet extended release 24 hr 100 mg PO DAILY aspirin 81 mg tablet,delayed release (DR/EC) 81 mg PO DAILY potassium chloride 20 mEq tablet,ER particles/crystals 20 meq PO DAILY diltiazem HCl [Tiazac] 120 mg capsule,extended release 24 hr 120 mg PO DAILY diclofenac sodium 75 mg tablet,delayed release (DR/EC) 75 mg PO DAILY allopurinol 300 mg tablet 300 mg PO DAILY telmisartan-hydrochlorothiazid [Micardis HCT] 80-25 mg tablet 1 tablet PO DAILY Follow-up/Referrals: [facility] [Primary Care Provider] - Time of Disposition: 22:45
[2024-08-15 22:50] VITALS: PULSE 62; RESP 15; O2SAT 95
== END 2024-08-15 22:52 | disposition home or self-care (01) ==
PROVIDERS: Emergency Provider Physician Assistant
DX: S61.012A Laceration without foreign body of left thumb without damage to nail, initial encounter (principal); Z23 Encounter for immunization; I10 Essential (primary) hypertension; E78.00 Pure hypercholesterolemia, unspecified; M19.90 Unspecified osteoarthritis, unspecified site; W31.2XXA Contact with powered woodworking and forming machines, initial encounter
CPT/HCPCS: 90471; 90715; 99282